=== PATIENT | male | born 1955 | race Caucasian/White ===

== ENCOUNTER 2024-05-30 09:02 | Outpatient (REF) | payer OTHER, SELFPAY ==
--- NOTE | ~2024-05-30 | XR_ITS ---
EXAMINATION: XR SHOULDER 2 OR MORE VIEWS LEFT HISTORY: M25.512 - Pain in left shoulder COMPARISON: There are no prior studies available for comparison. FINDINGS: Two views of the left shoulder are submitted. There is a curvilinear subchondral lucency in the humeral head which could represent a subchondral fracture. There is no dislocation. The glenohumeral joint is maintained. There is mild degenerative change of the AC joint. The humeral head is high riding, consistent with rotator cuff disease. The soft tissues are unremarkable. XR/XR shoulder LT min 2V IMPRESSION: 1. Curvilinear subchondral lucency in the humeral head which could represent a subchondral fracture. Additional views or cross-sectional imaging is suggested. 2. High riding humeral head consistent with rotator cuff disease. Electronically signed by: Phillip Hilario MD 05/31/2024 09:33 AM EDT
--- OUTSIDE RECORDS SUMMARY | 2024-05-31 09:17 | XMS_ITS | Clinical Summary ---
Author Organization [facility] Address [address] [place] [address] Care Team Providers Care Solid Surface Fabricator Name Role Phone Horacio Young MD Primary Care Provider [phone] Allergies No known active allergies Medications Medication [...] age to complete this topic Care Teams Solid Surface Fabricator Relationship Specialty Start Date End Date Horacio Young MD [address] [place] [id number] PCP - General 11/10/16
--- OUTSIDE RECORDS SUMMARY | 2024-05-31 09:17 | XMS_ITS | Clinical Summary ---
Author Organization [facility] [place] [address] Care Team Providers Care Campaign Advisor Name Role Phone Horacio Young MD Primary Care Provider [phone] Surgical History Surgery Date Site/Laterality Comments SHOULDER [...] - 2023-2 5 season) 2023 Influenza Vaccine (Season Ended) 2024 RSV Immunization Adult Patie nts (1 - [...] age to complete this topic Care Teams Campaign Advisor Relationship Specialty Start Date End Date Horacio Young MD [address] [place] [phone] PCP - General Internal Medicine 07/11/17
--- OUTSIDE RECORDS SUMMARY | 2024-05-31 09:17 | XMS_ITS | Clinical Summary ---
Author Organization [facility] Address [address] [place] [address] Care Team Providers Care Visual Education Director Name Role Phone Horacio Young MD Primary Care Provider [phone] Allergies No known active allergies Medications Medication [...] age to complete this topic Care Teams Visual Education Director Relationship Specialty Start Date End Date Horacio Young MD [address] [place], [place] [phone] PCP - General Internal Medicine 07/11/17
== END 2024-05-30 09:03 | disposition home or self-care (01) ==
LOC: HO.HOSX 09:02
PROVIDERS: Visit Provider Orthopaedic Surgery
DX: M25.512 Pain in left shoulder (principal)
CPT/HCPCS: 73030

== ENCOUNTER 2024-05-30 13:45 | Outpatient (AMB) | payer OTHER, SELFPAY ==
--- NOTE | 2024-05-30 13:55 | A.OFFVIS_ITS ---
Vital Signs 05/30/24 14:02 Height 5 ft 6 in Weight 146 lb BMI 23.6 Handedness Right Intake Visit Reasons: Left shoulder pain and weakness Intake Note: Bravo is a 69 year old right hand dominant male who presents with complaints of recurrent left shoulder pain and weakness. The patient did undergo left shoulder rotator cuff repair surgery approximately 15 years ago. He got fairly good relief from that surgery initially. The patient states that his symptoms have gotten worse over the last year. He has had difficulty swimming because of his pain and weakness. He has had injections in the past. The most recent injection gave him no relief. He has also tried Tylenol and anti-inflammatory medicines which gave him minimal relief. He has failed the last 6 weeks of conservative treatment. He has tried physical therapy exercises which aggravated his pain. He reports weakness when lifting his left hand above shoulder height. 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 Physical Exam Vital Signs: BMI result Body Mass Index 23.6 Const Other: Well-nourished well-developed very friendly male awake alert and oriented x3 in no acute distress Extrem Other: Bilateral upper extremity examination shows good capillary refill, no skin lesions noted, normal sensation light touch Left shoulder examination shows decreased range of motion when compared to his right shoulder, 3/5 strength with supraspinatus testing, no instability Results Reviewed Results Reviewed: X-rays of the patient's left shoulder show mild to moderate glenohumeral joint degenerative changes, a type 2 acromion, no acute bony abnormalities Assessment & Plan Assessment & Plan (1) Rotator cuff insufficiency of left shoulder: Code(s): M25.312 - Other instability, left shoulder Category: Medical Plan Mr. Camara presents with recurrent left shoulder pain and weakness most likely due to a recurrent rotator cuff tear. Thus, I will send the patient for an MRI of his left shoulder for further evaluation. I will see him back once the MRI is completed to discuss the findings and treatment options. Feel free to call me at any time should questions regarding his orthopedic management arise. I spent 20 minutes in reviewing the patient's records and imaging studies, seeing the patient and documenting in the medical record. Orders: Orders XR shoulder LT min 2V Today M25.512 - Pain in left shoulder MR shoulder LT wo con Today M25.312 - Other instability, left shoulder Coding Level of Care Code Est Pt Level 3 (75658) Complex EM visit Add On G2211 Diagnoses Rotator cuff insufficiency of left shoulder M25.312
[2024-05-30 14:02] VITALS: BMI 23.6
--- OUTSIDE RECORDS SUMMARY | 2024-05-30 16:28 | XMS_ITS | Clinical Summary ---
Author Organization [facility] Address [address] [place] [address] Care Team Providers Care Virtual Reality Specialist Name Role Phone Horacio Young MD Primary Care Provider Allergies No known active allergies Medications Medication Sig Dispensed Refills Start Date End Date Status aspirin EC 81 MG tablet Take 81 mg by mouth. 0 Acti ve atorvastatin (LIPITOR) tablet 80 mg TK 1 T PO QD 0 11/16/2016 Active clonazePAM (KLONOPIN) 0.5 MG tablet TK 1 T PO Q NIGHT UTD 0 11/11/2016 Act tamiko fluticasone (FLONASE) 50 MCG/ACT nasal spray spray or apply 1 spray inside Nose. 0 05/26/2017 Active metoprolol succinate (TOPROL-XL) 24 hr tablet 50 mg TK 1 T PO QD 0 10/03/2016 Active albuterol (VENTOLIN HFA) 108 (90 Base) MCG/ACT inhaler 0 10/21/2016 Active sertraline (ZOLOFT) 50 MG tablet TK 1 T PO ONCE D WF 0 11/18/2016 Act tamiko montelukast (SINGULAIR) 10 MG tablet TK 1 T PO D AT LEAST 2 HOURS PRIOR TO RUNNING PRN. BENEFIT LASTS FOR 24 HOURS 0 01/21/2018 Active FLUARIX QUADRIVALENT 0.5 ML injection inject 0.5 milliliter intramuscularly 0 11/29/2017 Active Active Problems Problem Noted Date Diagnosed Date Arthritis of knee, right 07/31/2019 Arthritis of knee, left 05/05/2018 Family History Medical History Relation Name Comments Cancer Father Relation Name Status Comments Father Social History Tobacco Use Types Packs/Day Years Used Date Smoking Tobacco: Never Smokeless Tobacco: Never Alcohol Use Standard Drinks/Week Comments No 0 (1 standard drink = 0.6 oz pur e alcohol) Sex and Gender Information Value Date Recorded Sex Assigned at Not on file Gender Identity Not on file Sexual Orientation Not on file Last Filed Vital Signs Vital Sign Reading Time Taken Comments Blood Pressure - - Pulse - - Temperature - - Respiratory Rate - - Oxygen Saturation - - Inhaled Oxygen Concentration - - Weight 64.9 kg (143 lb) 06/14/2018 3:30 PM EDT Height 170.2 cm (5' 7 ) 06/14/2018 3:30 PM EDT Body Mass Index 22.4 06/14/2018 3:30 PM EDT Plan of Treatment Health Maintenance Due Date Last Done Comments Hepatitis C Screening 1955 COVID-19 Vaccine (#1) 1955 Depression Screening 1967 Preventative Health Evaluation 1973 DTap / Tdap / Td (1 - Tdap) 1974 Colon Cancer Screening (Colonoscopy) 2000 Shingrix-Zoster Vaccine (1 of 2) 2005 Fall Risk Assessment 2020 Pneumococcal Vaccine (1 of 1 - PCV) 2020 Influenza Vaccine (#1) 2023 RSV Adult > 60+ Yrs or Pregn ant (1 - 1-dose 75+ series) 2030 Hepatitis B Vaccines Aged Out No long er eligible based on patient's age to complete this topic RSV Ped < 20 months Aged Out No longe r eligible based on patient's age to complete this topic Care Teams Virtual Reality Specialist Relationship Specialty Start Date End Date Horacio Young MD [address] [place], [place] [phone] PCP - General Internal Medicine 07/11/17
--- OUTSIDE RECORDS SUMMARY | 2024-05-30 16:28 | XMS_ITS | Clinical Summary ---
Author Organization [facility] [place] [address] Care Team Providers Care Principal Law Clerk Name Role Phone Horacio Young MD Primary Care Provider [phone] Surgical History Surgery Date Site/Laterality Comments SHOULDER SURGERY PROCEDURE:SHOULDER SURGERY RETINAL DETACHMENT SURGERY 2010 PROCEDURE:RETINAL DETACHMENT SURGERY GLAUCOMA SURGERY 2010 PROCEDURE:GLAUCOMA SURGERY Medical History Medical History Date Comments Asthma DX:Asthma Family History Medical History Relation Name Comments Cancer Father Relation Name Status Comments Father Social History Tobacco Use Types Packs/Day Years Used Date Smoking Tobacco: Never Smokeless Tobacco: Never Alcohol Use Standard Drinks/Week Comments No 0 (1 standard drink = 0.6 oz pur e alcohol) Sex and Gender Information Value Date Recorded Sex Assigned at Not on file Legal Sex Male 6:28 AM EST Gender Identity Not on file Sexual Orientation Not on file Obstetrics History Last Filed Vital Signs Vital Sign Reading Time Taken Comments Blood Pressure 88/60 11/08/2023 7:31 AM EDT Pulse - - Temperature - - Respiratory Rate - - Oxygen Saturation - - Inhaled Oxygen Concentration - - Weight 64 kg (141 lb) 11/08/2023 7:31 AM EDT Height 167.6 cm (5' 6 ) 11/08/2023 7:31 AM EDT Body Mass Index 22.76 11/08/2023 7:31 AM EDT Plan of Treatment Health Maintenance Due Date Last Done Comments DTaP,Tdap,and Td Vaccines (1 - Tdap) 1974 Pneumococcal Vaccine: 50+ Ye ars (1 of 1 - PCV) 2005 Zoster Vaccines (1 of 2) 2005 Abdominal Aortic Aneurysm (A AA) Screen 01/31/2022 Cholesterol Screening (Lipid Panel) 01/31/2022 Colorectal Cancer Screening: Colonoscopy 01/31/2022 Depression Screening 01/31/2022 Falls Risk Assessment 01/31/2022 Hepatitis C Screening 01/31/2022 Social Influencers of Health Screening 01/31/2022 COVID-19 Vaccine (1 - 2023-2 5 season) 2023 Influenza Vaccine (#1) 2023 RSV Immunization Adult Patie nts (1 - 1-dose 75+ series) 2030 HIB Vaccines Aged Out No longer eligi ble based on patient's age to complete this topic HPV Vaccines Aged Out No longer eligi ble based on patient's age to complete this topic Hepatitis A Vaccines Aged Out No long er eligible based on patient's age to complete this topic Hepatitis B Vaccines Aged Out No long er eligible based on patient's age to complete this topic IPV Vaccines Aged Out No longer eligi ble based on patient's age to complete this topic MMR Vaccines Aged Out No longer eligi ble based on patient's age to complete this topic Meningococcal ACWY Vaccine Aged Out N o longer eligible based on patient's age to complete this topic Meningococcal B Vacine Aged Out No lo nger eligible based on patient's age to complete this topic RSV Immunization Patients Un lluvia 20 months Aged Out No longer eligible b ased on patient's age to complete this topic Varicella Vaccines Aged Out No longer eligible based on patient's age to complete this topic Care Teams Principal Law Clerk Relationship Specialty Start Date End Date Horacio Young MD [address] [place] [phone] PCP - General Internal Medicine 07/11/17
--- OUTSIDE RECORDS SUMMARY | 2024-05-30 16:28 | XMS_ITS ---
Author Name [facility] Organization Unknown Encounters Encounter Type Encounter Reason Primary Diagnosis Location Date Ambulatory [facility] 05/03/2024
--- OUTSIDE RECORDS SUMMARY | 2024-05-30 16:28 | XMS_ITS | Clinical Summary ---
Author Organization [facility] Address [address] [place] [address] Care Team Providers Care Emergency Veterinarian Name Role Phone Horacio Young MD Primary Care Provider [phone] Allergies No known active allergies Medications Medication Sig Dispensed Refills Start Date End Date Status VENTOLIN HFA 108 (90 Base) MCG/ACT inhaler 10/21/2016 Act tamiko atorvastatin (LIPITOR) 80 MG tablet TK 1 T PO QD 3 11/16/2016 Active clonazePAM (KlonoPIN) 0.5 MG tablet TK 1 T PO Q NIGHT UTD 2 11/11/2016 Active metoPROLOL SUCCINATE (TOPROL-XL) 50 MG 24 hr tablet TK 1 T PO QD 3 10/03/2016 Active sertraline (ZOLOFT) 50 MG tablet TK 1 T PO ONCE D WF 1 11/18/2016 Active aspirin enteric coated (ECOTRIN LOW STRENGTH) 81 MG EC tablet Take 81 mg by mouth daily. Active fluticasone (FloNASE) 50 mcg/spray nasal sprayIndications:Viral upper respiratory tract infection 1 spray into each nostril daily. 1 Bottle 05/26/2017 Active Active Problems Problem Noted Date Diagnosed Date Pain of right tibia 11/25/2016 Medial tibial stress syndrome 11/25/2016 Social History Tobacco Use Types Packs/Day Years Used Date Smoking Tobacco: Never Smokeless Tobacco: Never Tobacco Cessation:Counseling Given: Yes Alcohol Use Standard Drinks/Week Comments Yes 0 (1 standard drink = 0.6 oz pur e alcohol) Sex and Gender Information Value Date Recorded Sex Assigned at Not on file Gender Identity Not on file Sexual Orientation Not on file Last Filed Vital Signs Vital Sign Reading Time Taken Comments Blood Pressure 166/83 05/26/2017 11:26 AM EDT Pulse 52 05/26/2017 11:26 AM EDT Temperature 36.9 ??C (98.4 ??F) 05/26/2017 11:26 AM E DT Respiratory Rate - - Oxygen Saturation 97% 05/26/2017 11:26 AM EDT Inhaled Oxygen Concentration - - Weight 63.5 kg (140 lb) 05/26/2017 11:26 AM EDT Height 170.2 cm (5' 7 ) 05/26/2017 11:26 AM EDT Body Mass Index 21.93 05/26/2017 11:26 AM EDT Plan of Treatment Health Maintenance Due Date Last Done Comments Hepatitis C Virus Screening 1955 DTaP/Tdap/Td Vaccines (1 - Tdap) 1974 Colonoscopy 2000 Pneumococcal Vaccines 50+ (1 of 1 - PCV) 2005 Zoster (Shingles) Vaccine (1 of 2) 2005 Influenza Vaccine 09/29/2023 COVID-19 Vaccine ( - 2023-2 5 season) 2023 RSV Vaccine 60 years and old er and Patients (1 - 1-dose 75+ series) 2030 Hepatitis B Vaccines Aged Out No long er eligible based on patient's age to complete this topic Care Teams Emergency Veterinarian Relationship Specialty Start Date End Date Horacio Young MD [address] [place] [id number] PCP - General 11/10/16
== END 2024-05-30 14:19 | disposition home or self-care (01) ==
PROVIDERS: PCP Internal Medicine; Visit Provider Orthopaedic Surgery
DX: M25.312 Other instability, left shoulder (principal)
CPT/HCPCS: 99213

== ENCOUNTER → 2024-05-30 13:55 | Outpatient (BNV) | payer OTHER, SELFPAY | PROVIDERS: Visit Provider Radiology Diagnostic Radiology | DX: M89.8X2 Other specified disorders of bone, upper arm (principal) | CPT/HCPCS: 73030 ==

== ENCOUNTER 2024-11-06 07:33 | Outpatient (AMB) | payer OTHER, SELFPAY ==
--- OUTSIDE RECORDS SUMMARY | 2024-03-27 12:00 | XMS_ITS ---
Author Organization [facility], [place] Address [address] [facility] [address] [place] [address] Care Team Providers Care Form Setter Supervisor Name Role Phone Migration, Provider Unavailable Unavailable REASON FOR VISIT Follow-up Appt Encounters Encounter Location Date Provider Diagnosis [facility], [address] [place] [phone] 03/27/2024 Provider Migration Plan Of Treatment Next Appt Details Provider Name:Abril Mustafa, 11/08/2024 03:00:00 PM, [address] [place] [address], [address], [place], [address], [phone] Progress Notes * AKOSUA MULLENDOB:[birth year] (69 yo M)Acc No.[id number]:03/27/2024 Progress Notes Patient: AKOSUA HANSON Provider: Nithya Overton :1955 A ge:69 Y S ex:Male Date:03/27/2024 Phone: Address:[address] [phone] Subjective: * Chief Complaints: * F ollow-up Appt * Ocular Surgical History: Objective: Vision Examination: * Electronic signature of Prov ider Migration on 11/06/2024 at 07:35 AM EDT Sign off status: Pending * Provider: Nithya salcido Migration Date: 03/27/2024 Generated for Abdelrahman kong/Papa/eTsukumarsmitting on: 0 11/06/2024 07:35 AM EDT
--- OUTSIDE RECORDS SUMMARY | 2024-06-21 11:30 | XMS_ITS ---
Author Organization [facility] [place] Address [address] [facility] [address] [place] [address] Care Team Providers Care Milk Truck Driver Name Role Phone Cesar Tafoya Unavailable [phone] REASON FOR VISIT Follow-up Appt Encounters Encounter Location Date Provider Diagnosis [facility], [address] [place] [address] 06/21/2024 Cesar Tafoya Plan Of Treatment Next Appt Details Provider Name:Abril Mustafa, 11/08/2024 03:00:00 PM, [address] [place] [address], [address], [place], [address], [id number] Progress Notes * AKOSUA MULLENDOB:[birth year] (69 yo M)Acc No.[id number]:06/21/2024 Progress Notes Patient: AKOSUA HANSON Provider: Zandra FOWLER :1955 A ge:69 Y S ex:Male Date:06/21/2024 Phone: Address:[address], [facility] [phone] Subjective: * Chief Complaints: * F ollow-up Appt * Ocular Surgical History: Objective: Vision Examination: * Electronic signature of Flakito Tafoya PA-C on 11/06/2024 at 07:35 AM EDT Sign off status: Pending * Provider: Zandra FOWLER Date: 0 06/21/2024 Generated for Printi ng/Faxing/eTransmitting on: 0 11/06/2024 07:35 AM EDT
--- OUTSIDE RECORDS SUMMARY | 2024-08-28 12:00 | XMS_ITS ---
Author Organization [facility] [place] Address [address] [facility] [address] [place] [address] Care Team Providers Care Licensed Electrician Name Role Phone Cesar Tafoya Unavailable [phone] Allergies No Known Allergies REASON FOR VISIT [...] Encounter Location Date Provider Diagnosis [facility], [place] [address] [facility] [address] [place] [address] 08/28/2024 Cesar Tafoya Assessments Encounter Date Diagnosis [...] Up: 4 Months, Reason: BP Provider Name:Abril Saggerry, 11/08/2024 03:00:00 PM, [address] [place] [address], [address], [place], [address], [id number] Progress Notes * AKOSUA MULLENDOB:[birth year] (69 yo M)Acc No.[id number]:08/28/2024 Progress Notes Patient: AKOSUA HANSON Provider: Zandra FOWLER :1955 A ge:69 Y S ex:Male Date:08/28/2024 Phone: Address:[address] [place], [place] [address]lu Perez, [place], [place] Subjective: * Chief Complaints: * F [...] of Flakito Tafoya PA-C on 11/06/2024 at 07:36 AM EDT Sign off status: Pending * Provider: Zandra FOWLER Date: 0 08/28/2024 Generated for Abdelrahman kong/Papa/Logan on: 11/06/2024 07:36 AM EDT
--- OUTSIDE RECORDS SUMMARY | 2024-09-07 06:45 | XMS_ITS ---
Author Organization [facility] [place] Address [address] [facility] [address] [place] [address] Care Team Providers Care Guitar Teacher Name Role Phone Abril Mustafa Unavailable [phone] Allergies No Known Allergies REASON FOR VISIT [...] Insomnia disorder related to another mental disorder ([id number]) Insomnia 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) [...] Location Date Provider Diagnosis [facility], [address] [place] [address] 09/07/2024 Abril Mustafa Insomnia due to other [...] days Next Appt Details Provider Name:Abril Mustafa, 11/08/2024 03:00:00 PM, [address] [place] [address], Suite [facility], [place], [address], [phone] Progress Notes * AKOSUA MULLENDOB:[birth year] (69 yo M)Acc No.[id number]:09/07/2024 Progress Notes Patient: AKOSUA HANSON Provider: Inna gibbs Ramsey :1955 A ge:69 Y S ex:Male Date:09/07/2024 Phone: Address:[facility] Fausto Perez, [place], [place] Subjective: * Chief Complaints: * 1 [...] * Electronic signature of Melissa Mustafa on 11/06/2024 at 07:35 AM EDT Sign off status: Pending * Provider: Inna Mustafa Date: 09/07/2024 Generated for Abdelrahman kong/Papa/Logan on: 11/06/2024 07:35 AM EDT
--- OUTSIDE RECORDS SUMMARY | 2024-10-08 10:30 | XMS_ITS ---
Author Organization [facility] [place] Address [address] [place] [address] [address] [place] [address] Care Team Providers Care Supervisor Prep Name Role Phone Abril Mustafa Unavailable [phone] REASON FOR VISIT 1 MOUTH Medications Medication [...] Unknown Encounters Encounter Location Date Provider Diagnosis [facility] [address] [facility] [address] [place] [address] 10/08/2024 Abril Mustafa Plan Of Treatment Next Appt Details Provider Name:bAril Mustafa, 11/08/2024 03:00:00 PM, [address] [facility], Suite [facility], [place], [address], [phone] Progress Notes * AKOSUA MULLENDOB:[birth year] (69 yo M)Acc No.[id number]:10/08/2024 Progress Notes Patient: AKOSUA HANSON Provider: Inna Mustafa :1955 A ge:69 Y S ex:Male Date:10/08/2024 Phone: Address:[address] [place], [place] [address]lu Perez, [address] [facility], [phone] Subjective: * Chief Complaints: * 1 MOUTH [...] status: Pending * Provider: Inna Mustafa Date: 10/08/2024 Generated for Abdelrahman kong/Papa/Logan on: 11/06/2024 07:35 AM EDT
--- OUTSIDE RECORDS SUMMARY | 2024-11-06 07:35 | XMS_ITS | Clinical Summary ---
Author Organization [facility] Address [address] [place] [address] Care Team Providers Care Tyre Builder Name Role Phone Horacio Young MD Primary Care Provider [phone] Allergies No known active allergies Medications VENTOLIN HFA 108 (90 Base) MCG/ACT inhaler [...] daily. Active fluticasone (FloNASE) 50 mcg/spray nasal sprayIndications :Viral upper respiratory tract infection 1 spray into [...] at Not on file Legal Sex Male 3:03 PM EDT Gender Identity Not on file Sexual Orientation Not on file Last Filed Vital Signs Vital Sign Reading Time Taken Comments Blood Pressure 166/83 05/26/2017 11:26 AM EDT Pulse 52 05/26/2017 11:26 AM EDT Temperature 36.9 C (98.4 F) 05/26/2017 11:26 AM EDT Respiratory Rate - - Oxygen Saturation 97% 05/26/2017 11:26 AM EDT Inhaled Oxygen Concentration - - Weight 63.5 kg (140 lb) 05/26/2017 11:26 AM EDT Height 170.2 cm (5' 7 ) 05/26/2017 11:26 AM EDT Body Mass Index 21.93 05/26/2017 11:26 AM EDT Plan of Treatment Health Maintenance Due Date Last Done Comments Advance Care Planning 1955 Hepatitis C Virus Screening 1955 DTaP/Tdap/Td Vaccines (1 - Tdap) 1974 Colonoscopy 2000 Pneumococcal Vaccines 50+ (1 of 1 - PCV) 2005 Zoster (Shingles) Vaccine (1 of 2) 2005 Influenza Vaccine 09/28/2024 COVID-19 Vaccine ( - 2023-2 5 season) 2024 RSV Vaccine 60 years and old er and Patients (1 - 1-dose 75+ series) 2030 Hepatitis B Vaccines Aged Out No long er eligible based on patient's age to complete this topic Insurance [facility] [facility] Care Teams Tyre Builder Relationship Specialty Start Date End Date Horacio Young MD [address] [place] [address] PCP - General 11/10/16
--- OUTSIDE RECORDS SUMMARY | 2024-11-06 07:35 | XMS_ITS ---
Author Name [facility] Organization Unknown Encounters Encounter Type Encounter Reason Primary Diagnosis Location Date Ambulatory [facility] [place] 05/03/2024
--- OUTSIDE RECORDS SUMMARY | 2024-11-06 07:35 | XMS_ITS | Clinical Summary ---
Author Organization [facility] Address [address] [place] [address] Care Team Providers Care Music Librarian Name Role Phone Horacio Young MD Primary Care Provider [phone] Allergies No known active allergies Medications Medication [...] 1 - PCV) 2020 Influenza Vaccine (#1) 2024 RSV Adult > 60+ Yrs or Pregn ant (1 - 1-dose 75+ series) 2030 Hepatitis B Vaccines Aged Out No long er eligible based on patient's age to complete this topic RSV Ped < 20 months Aged Out No longe r eligible based on patient's age to complete this topic Care Teams Music Librarian Relationship Specialty Start Date End Date Horacio Young MD [address] [place], [place] [phone] PCP - General Internal Medicine 07/11/17
--- OUTSIDE RECORDS SUMMARY | 2024-11-06 07:36 | XMS_ITS | Patient Health Record ---
Author Organization [facility], [place] Address [address] [place] [address] Care Team Providers Care Dosimetrist Name Role Phone Cesar Tafoya Unavailable [phone] Migration, Provider Unavailable Unavailable Abril Mustafa Unavailable [phone] Brandy Herron Unavailable [phone] Allergies No Known Allergies Reason For Referral No Information Medications Medication SIG (Take, Route, Frequency, Duration) [...] 1 tablet Orally Once a day Unknown Montelukast Sodium 10 MG Tablet 1 tablet Orally Once a day; Duration: 90 days 10/26/2024 Active amLODIPine Besylate 5 MG Tablet 1 tablet Orally Once a day Unknown Social History Section Notes: DENIES SMOKING ALCOHOL APPROX 5 TIMES A WEEK/1 DRINK DAILY CAFFEINE-1 CUP COFFEE DAILY DENIES SMOKING ALCOHOL APPROX 5 TIMES A WEEK/1 DRINK DAILY CAFFEINE-1 CUP COFFEE DAILY Problems Problem Type SNOMED Code ICD Code Onset Dates Problem Status W/U Status Risk Notes Problem Insomnia disorder related to another mental disorder (67071705) 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 Vital Signs Heart Rate 60 /min 09/07/2024 5.6 ht Temperature 96.3 degrees Fahrenheit 09/07/2024 5.6 ht Respiratory Rate 20 /min 09/07/2024 5.6 ht Oximetry 99 % 09/07/2024 5.6 ht Blood pressure diastolic 81 mm Hg 09/07/2024 5.6 ht Weight-kg 68.49 kg 09/07/2024 5.6 ht Blood pressure systolic 144 mm Hg 09/07/2024 5.6 ht Weight 151 lbs 09/07/2024 5.6 ht Encounters Encounter Location Date Provider Diagnosis [facility], [address] [address] 03/27/2024 Cesar Tafoya [facility], [address] [address] 03/27/2024 Provider Migration [facility], [address] [address] 06/21/2024 Cesar Tafoya [facility], [address] [address] 08/28/2024 Cesar Tafoya [facility], [address] [address] 09/07/2024 Abril Mustafa Insomnia due to other mental disorder F51.05 [facility], [address] [address] 10/19/2024 Brandy Herron [facility], [address] [address] 10/26/2024 Abril Mustafa Asthma, unspecified asthma severity, unspecified whether complicated, unspecified whether persistent J45.909 [facility], [address] [address] 10/05/2024 Abril Mustafa Assessments Encounter Date Diagnosis (ICD Code) Assessment Notes Treatment Notes Treatment Clinical Notes Section Notes 09/07/2024 Insomnia due to other mental disorder (ICD-10 - F51.05) 10/26/2024 Asthma, unspecified asthma severity, unspecified whether complicated, unspecified whether persistent (ICD-10 - J45.909) 08/28/2024 FRANKIE SEES A PROVIDER FOR THE [...] LOSARTAN 25MG IN AFTERNOON Plan Of Treatment Next Appt Details Provider Name:Abril Mustafa, 11/08/2024 03:00:00 PM, [address] [place] [address], [address], [place], [address], [phone] Insurance Providers Payer Name Payer Address Payer Phone Subscriber Number Group Number Insured Name Patient Relationship to Insured Coverage Start Date Coverage End Date [facility] [address] [address] [place] [address] [id number] AKOSUA MULLEN Self - patient is the insured Medical (General) History Medical History History ICD Code NO OTHER PROVIDERS Surgical History Surgery Date(Month/Year) ANGOPLASTY VICTRECTOMY GLAUCOMA HEART ATTACK 6 STENT Hospitalization History Reason Date(Month/Year) FOR DEHYDRATION 10/21
--- OUTSIDE RECORDS SUMMARY | 2024-11-06 07:36 | XMS_ITS | Clinical Summary ---
Author Organization LL [address] [place] [address] [place] [phone] Phone Care Team Providers Care Edger Machine Helper Name Role Phone Horacio Young MD Primary Care Provider [phone] Surgical History Surgery Date Site/Laterality Comments SHOULDER [...] DTaP,Tdap,and Td Vaccines (1 - Tdap) 1974 IPV Vaccines (2 of 3 - Adult catch-up series) 11/08/2005 10/11/2005 Hepatitis A Vaccines (2 of 2 - Risk 2-dose series) 04/13/2006 10/11/2005 Pneumococcal Vaccine: 50+ Years (2 of 2 - PCV) 01/05/2007 01/05/2006 Zoster Vaccines (2 of 3) 10/23/2016 08/28/2016 Abdominal Aortic Aneurysm (AAA) Screen 01/31/2022 Colorectal Cancer Screening: Colonoscopy 01/31/2022 Falls Risk Assessment 01/31/2022 Hepatitis C Screening 01/31/2022 Social Influencers of Health Screening 01/31/2022 Depression Screening 02/29/2024 COVID-19 Vaccine ( season) 2024 01/22/2024, 11/18/2022, 02/23/2022, Additional history exists Influenza Vaccine (#1) 2024 , 04/01/2019, 01/05/2006 Hypertension/CHF/CAD Annual BMP Blood Test 09/07/2025 09/07/2024 Cholesterol Screening (Lipid Panel) 09/07/2029 09/07/2024 RSV Immunization Adult Patients (1 - 1-dose 75+ series) 2030 HIB [...] age to complete this topic Meningococcal B Vaccine Aged Out No l onger eligible based on patient's age to complete this topic RSV Immunization Patients Under 20 months Aged Out No longer eligible based on patient's age to complete this topic Varicella Vaccines Aged Out No longer eligible based on patient's age to complete this topic Procedures Procedure Name Priority Date/Time Associated Diagnosis Comments MICROALBUMIN CREATININE URINE RATIO Routine 09/07/2024 11:45 AM EDT Hypertension Alcohol abuse Benign enlargement of prostate CBC WITH AUTO DIFFERENTIAL Routine 09/07/2024 11:38 AM EDT Hypertension Alcohol abuse Benign enlargement of prostate AMYLASE Routine 09/07/2024 11:38 AM EDT Hypertension Alcohol abuse Benign enlargement of prostate FOLATE Routine 09/07/2024 11:38 AM EDT Hypertension Alcohol abuse Benign enlargement of prostate LIPASE Routine 09/07/2024 11:38 AM EDT Hypertension Alcohol abuse Benign enlargement of prostate MAGNESIUM Routine 09/07/2024 11:38 AM EDT Hypertension Alcohol abuse Benign enlargement of prostate COMPREHENSIVE METABOLIC PANEL Routine 09/07/2024 11:38 AM EDT Hypertension Alcohol abuse Benign enlargement of prostate LIPID PANEL WITH REFLEX TO DIRECT LDL Routine 09/07/2024 11:38 AM EDT Hypertension Alcohol abuse Benign enlargement of prostate VITAMIN B12 Routine 09/07/2024 11:38 AM EDT Hypertension Alcohol abuse Benign enlargement of prostate B-TYPE NATRIURETIC PEPTIDE Routine 09/07/2024 11:38 AM EDT Hypertension Alcohol abuse Benign enlargement of prostate CBC AND DIFFERENTIAL Routine 09/07/2024 11:38 AM EDT Hypertension Alcohol abuse Benign enlargement of prostate THYROXINE FREE Routine 09/07/2024 11:38 AM EDT Hypertension Alcohol abuse Benign enlargement of prostate HEMOGLOBIN A1C Routine 09/07/2024 11:38 AM EDT Hypertension Alcohol abuse Benign enlargement of prostate PROSTATE SPECIFIC ANTIGEN SCREEN Routine 09/07/2024 11:38 AM EDT Hypertension Alcohol abuse Benign enlargement of prostate THYROID STIMULATING HORMONE Routine 09/07/2024 11:38 AM EDT Hypertension Alcohol abuse Benign enlargement of prostate VITAMIN D 25 HYDROXY Routine 09/07/2024 11:38 AM EDT Hypertension Alcohol abuse Benign enlargement of prostate from Last 3 Months Results * Microalbumin creatinine urine ratio (09/07/2024 11:45 AM EDT) Creatinine, Urine 158.0 mg/dL LAB CHEMISTRY METHOD 09/07/2024 4:02 PM EDT [facility] Microalb, Ur 23.9 0.0 - 29.0 mg/L LAB CHEMISTRY METHOD 09/07/2024 4:02 PM EDT [facility] Microalb/Creat Ratio 15 <30 mg/g creat LAB CHEMISTRY METHOD 09/07/2024 4:02 PM EDT [facility] Urine Urine specimen obtained by clean catch procedure / Unknown Non-blood Collection / Unknown 09/07/2024 11:45 AM EDT 09/07/2024 1:06 PM EDT us Cesar FOWLER LAB URINE ORDERABLES Final Res ult Performing Organization Address [facility]/ZIP Co de Phone Number [facility] [address] [place] [address], * Prostate specific antigen screen (09/07/2024 11:38 AM EDT) PSA 0.96 0.00 - 4.00 ng/mL LAB CHEMISTRY METHOD 09/07/2024 4:06 PM EDT [facility] Blood Venous blood specimen / Unknown Venipuncture / Unknown 09/07/2024 11:38 AM EDT 09/07/2024 1:06 PM EDT Narrative [facility] - 09/07/2024 4:06 PM EDT The Siemens Advia Centaur Chemiluminescent Immunoassay is used. Results obtained with different assay methods or kits cannot be used interchangeably. Results cannot be interpreted as absolute evidence of the presence or absence of malignant disease. us Cesar FOWLER LAB BLOOD ORDERABLES Final Res ult Performing Organization Address City/[facility]/ZIP Co de Phone Number [facility] [address] [place] [address], [place] [phone] * Lipid panel with reflex to direct LDL (09/07/2024 11:38 AM EDT) Cholesterol 122 0 - 200 mg/dL LAB CHEMISTRY METHOD 09/07/2024 2:44 PM EDT [facility] Triglycerides 68 0 - 150 mg/dL LAB CHEMISTRY METHOD 09/07/2024 2:44 PM EDT [facility] HDL 71 >=40 mg/dL LAB CHEMISTRY METHOD 09/07/2024 2:44 PM EDT [facility] LDL Calculated 37 0 - 100 mg/dL LAB CHEMISTRY METHOD 09/07/2024 2:44 PM EDT [facility] VLDL Cholesterol Neo 13.6 mg/dL LAB CHEMISTRY METHOD 09/07/2024 2:44 PM EDT [facility] Non HDL Chol. (LDL+VLDL) 51 <145 mg/dL LAB CHEMISTRY METHOD 09/07/2024 2:44 PM EDT [facility] Chol/HDL Ratio 1.7 0.0 - 4.4 LAB CHEMISTRY METHOD 09/07/2024 2:44 PM EDT [facility] Blood Venous blood specimen / Unknown Venipuncture / Unknown 09/07/2024 11:38 AM EDT 09/07/2024 1:06 PM EDT Cesar FOWLER LAB BLOOD ORDERABLES Final Res ult [facility] [address] [place] [address], [place] [phone] * (ABNORMAL) CBC auto differential (09/07/2024 11:38 AM EDT) WBC 4.5(L) 4.8 - 10.8 K/mcL LAB HEMETOLOGY METHOD 09/07/2024 1:17 PM EDT [facility] RBC 3.60(L) 4.50 - 5.50 M/mcL LAB HEMETOLOGY METHOD 09/07/2024 1:17 PM EDT [facility] Hemoglobin 12.2(L) 13.5 - 17.5 g/dL LAB HEMETOLOGY [facility]07[facility]24 [facility] Hematocrit 35.2(L) 42.0 - 54.0 % LAB HEMETOLOGY METHOD 09/07/2024 [facility] MCV 97.2 79.0 - 98.0 FL LAB HEMETOLOGY METHOD 09/07/2024 1:17 PM [facility] MCH 33.7(H) 27.0 - 32.0 pcg LAB HEMETOLOGY METHOD 09/07/2024 1:17 PM [facility] MCHC 34.7 32.0 - 37.0 g/dL LAB HEMETOLOGY METHOD 09/07/2024 1:17 PM [facility] RDW 12.3 11.0 - 15.0 % LAB HEMETOLOGY METHOD 09/07/2024 1:17 PM [facility] Platelets 181 130 - 400 K/mcL LAB HEMETOLOGY METHOD 09/07/2024 1:17 PM [facility] MPV 11.5(H) 7.0 - 11.0 FL LAB HEMETOLOGY METHOD 09/07/2024 1:[facility] NRBC 0.0 <1.0 % LAB HEMETOLOGY METHOD 09/07/2024 1:[facility] NRBC Absolute 0.00 <0.10 K/mcL LAB HEMETOLOGY METHOD 09/07/2024 1:[facility] Neutrophils Relative 60.9 % LAB HEMETOLOGY METHOD 09/07/2024 1:[facility] Lymphocytes Relative 26.7 % LAB HEMETOLOGY METHOD 09/07/2024 1:17 PM EDT [facility] Monocytes Relative 9.7 % LAB HEMETOLOGY METHOD 09/07/2024 1:17 PM [facility] Eosinophils Relative 1.6 % LAB HEMETOLOGY METHOD 09/07/2024 1:17 PM [facility] Basophils Relative 0.9 % LAB HEMETOLOGY METHOD 09/07/2024 1:17 PM [facility] Immature Granulocytes Relative 0.2 % LAB HEMETOLOGY METHOD 09/07/2024 1:17 PM [facility] Neutrophils Absolute 2.71 1.50 - 7.00 K/mcL LAB HEMETOLOGY METHOD 09/07/2024 1:17 PM [facility] Lymphocytes Absolute 1.19 1.00 - 5.00 K/mcL LAB HEMETOLOGY METHOD 09/07/2024 1:17 PM [facility] Monocytes Absolute 0.43 0.20 - 1.00 K/mcL LAB HEMETOLOGY METHOD 09/07/2024 1:17 PM [facility] Eosinophils Absolute 0.07 0.00 - 0.50 K/mcL LAB HEMETOLOGY METHOD 09/07/2024 1:17 PM [facility] Basophils Absolute 0.04 0.00 - 0.20 K/mcL LAB HEMETOLOGY METHOD 09/07/2024 1:17 PM [facility] Immature Granulocytes Absolute 0.01 0.00 - 0.03 K/mcL LAB HEMETOLOGY METHOD 09/07/2024 1:17 PM [facility] Blood Venous blood specimen / Unknown Venipuncture / Unknown 09/07/2024 11:38 AM EDT 09/07/2024 1:07 PM EDT us Cesar FOWLER LAB BLOOD ORDERABLES Final Res ult Performing Organization Address [facility]/ZIP Co de Phone Number [facility] [address] [place] [address], * Vitamin D 25 hydroxy (09/07/2024 11:38 AM EDT) Vit D, 25-Hydroxy 45.4 30.0 - 80.0 ng/mL LAB CHEMISTRY METHOD 09/07/2024 4:06 PM EDT [facility] Blood Venous blood specimen / Unknown Venipuncture / Unknown 09/07/2024 11:38 AM EDT 09/07/2024 1:06 PM EDT Cesar FOWLER LAB BLOOD ORDERABLES Final Res ult Performing Organization Address [facility] Co de Phone Number [facility] [address] [place] [address], * Thyroid stimulating hormone (09/07/2024 11:38 AM EDT) TSH 1.41 0.40 - 4.00 mcIU/mL LAB CHEMISTRY METHOD 09/07/2024 4:56 PM EDT [facility] Blood Venous blood specimen / Unknown Venipuncture / Unknown 09/07/2024 11:38 AM EDT 09/07/2024 1:06 PM EDT Cesar FOWLER LAB BLOOD ORDERABLES Final Res ult Performing Organization Address [facility]/ZIP Co de Phone Number [facility] [address] [place] [address], * Thyroxine free (09/07/2024 11:38 AM EDT) Free T4 1.04 0.70 - 1.80 ng/dL LAB CHEMISTRY METHOD 09/07/2024 4:06 PM EDT [facility] Blood Venous blood specimen / Unknown Venipuncture / Unknown 09/07/2024 11:38 AM EDT 09/07/2024 1:06 PM EDT Cesar FOWLER LAB BLOOD ORDERABLES Final Res ult Performing Organization Address [facility]/ZIP Co de Phone Number [facility] [address] [place] [address], * B-type natriuretic peptide (09/07/2024 11:38 AM EDT) BNP 59 <=100 pcg/mL LAB CHEMISTRY METHOD 09/07/2024 2:01 PM EDT [facility] Blood Venous blood specimen / Unknown Venipuncture / Unknown 09/07/2024 11:38 AM EDT 09/07/2024 1:07 PM EDT Cesar FOWLER LAB BLOOD ORDERABLES Final Res ult Performing Organization Address [facility]/ZIP Co de Phone Number [facility] [address] [place] [address], * Magnesium (09/07/2024 11:38 AM EDT) Magnesium 1.9 1.9 - 2.6 mg/dL LAB CHEMISTRY METHOD 09/07/2024 2:18 PM EDT [facility] Blood Venous blood specimen / Unknown Venipuncture / Unknown 09/07/2024 11:38 AM EDT 09/07/2024 1:06 PM EDT Cesar FOWLER LAB BLOOD ORDERABLES Final Res ult [facility] [address] [place] [address], [place] [phone] * Lipase (09/07/2024 11:38 AM EDT) Pathologist [facility] Lipase 60 13 - 75 unit/L LAB CHEMISTRY METHOD 09/07/2024 2:44 PM EDT [facility] Blood Venous blood specimen / Unknown Venipuncture / Unknown 09/07/2024 11:38 AM EDT 09/07/2024 1:06 PM EDT us Cesar FOWLER LAB BLOOD ORDERABLES Final Res ult Performing Organization Address City/[facility]/ZIP Co de Phone Number [facility] [address] [place] [address], [place] [phone] * Hemoglobin A1c (09/07/2024 11:38 AM EDT) [facility] Hemoglobin A1C 5.2 <6.5 % LAB CHEMISTRY METHOD 09/07/2024 9:22 PM EDT [facility] Mean Bld Glu Estim. 103 mg/dL LAB CHEMISTRY METHOD 09/07/2024 9:22 PM EDT [facility] Blood Venous blood specimen / Unknown Venipuncture / Unknown 09/07/2024 11:38 AM EDT 09/07/2024 1:07 PM EDT us Ceasr FOWLER LAB BLOOD ORDERABLES Final Res ult Performing Organization Address [facility]/ZIP Co de Phone Number [facility] [address] [place] [address], [place] [phone] * (ABNORMAL) Folate (09/07/2024 11:38 AM EDT) [facility] Folate >20.0(H) 2.8 - 17.0 ng/ml LAB CHEMISTRY METHOD 09/07/2024 2:44 PM EDT [facility] Blood Venous blood specimen / Unknown Venipuncture / Unknown 09/07/2024 11:38 AM EDT 09/07/2024 1:06 PM EDT Cesar FOWLER LAB BLOOD ORDERABLES Final Res ult Performing Organization Address City/[facility]/ZIP Co de Phone Number [facility] [address] [place] [address], [place] [phone] * Vitamin B12 (09/07/2024 11:38 AM EDT) Vitamin B-12 538 250 - 900 pcg/mL LAB CHEMISTRY METHOD 09/07/2024 2:44 PM EDT [facility] Blood Venous blood specimen / Unknown Venipuncture / Unknown 09/07/2024 11:38 AM EDT 09/07/2024 1:06 PM EDT Cesar FOWLER LAB BLOOD ORDERABLES Final Res ult Performing Organization Address [facility] Co de Phone Number [facility] [address] [place] [address], [place] [phone] * Amylase (09/07/2024 11:38 AM EDT) Amylase 76 25 - 115 unit/L LAB CHEMISTRY METHOD 09/07/2024 2:18 PM EDT [facility] Blood Venous blood specimen / Unknown Venipuncture / Unknown 09/07/2024 11:38 AM EDT 09/07/2024 1:06 PM EDT Cesar FOWLER LAB BLOOD ORDERABLES Final Res ult Performing Organization Address City/[facility]/ZIP Co de Phone Number [facility] [address] [place] [address], [place] [phone] * Comprehensive metabolic panel (09/07/2024 11:38 AM EDT) Sodium 140 133 - 145 mmol/L LAB CHEMISTRY METHOD 09/07/2024 2:44 PM EDT [facility] Potassium 4.3 3.5 - 5.5 mmol/L LAB CHEMISTRY METHOD 09/07/2024 2:44 PM [facility] Chloride 107 96 - 110 mmol/L LAB CHEMISTRY METHOD 09/07/2024 2:44 PM [facility] CO2 27 21 - 32 mmol/L LAB CHEMISTRY METHOD 09/07/2024 2:44 PM [facility] Anion Gap 6 3 - 11 LAB CHEMISTRY METHOD 09/07/2024 2:44 PM [facility] Glucose 78 70 - 100 mg/dL LAB CHEMISTRY METHOD 09/07/2024 2:44 PM [facility] BUN 22 5 - 25 mg/dL LAB CHEMISTRY METHOD 09/07/2024 2:44 PM [facility] Creatinine 1.14 0.70 - 1.30 mg/dL LAB CHEMISTRY METHOD 09/07/2024 2:44 PM [facility] eGFR 70 >=60 mL/min/1. 73m2 LAB CHEMISTRY METHOD 09/07/2024 2:44 PM [facility] Comment:Calculation based on the Chronic Kidney Disease Epidemiology Collaboration (CKD-EPI) equation refit without adjustment for race. BUN/Creatinine Ratio 19.3 LAB CHEMISTRY METHOD 09/07/2024 2:44 PM [facility] Calcium 9.0 8.5 - 10.5 mg/dL LAB CHEMISTRY METHOD 09/07/2024 2:44 PM [facility] AST (SGOT) 21 10 - 42 unit/L LAB CHEMISTRY METHOD 09/07/2024 2:44 PM [facility] ALT (SGPT) 29 10 - 60 unit/L LAB CHEMISTRY METHOD 09/07/2024 2:44 PM [facility] Alkaline Phosphatase 66 42 - 121 unit/L LAB CHEMISTRY METHOD 09/07/2024 2:44 PM [facility] Total Protein 6.7 6.0 - 8.0 g/dL LAB CHEMISTRY METHOD 09/07/2024 2:44 PM EDT [facility] Albumin 3.9 3.2 - 5.0 g/dL LAB CHEMISTRY METHOD 09/07/2024 2:44 PM EDT [facility] Total Bilirubin 1.0 0.0 - 1.4 mg/dL LAB CHEMISTRY METHOD 09/07/2024 2:44 PM EDT [facility] Blood Venous blood specimen / Unknown Venipuncture / Unknown 09/07/2024 11:38 AM EDT 09/07/2024 1:06 PM EDT Cesar FOWLER LAB BLOOD ORDERABLES Final Res ult [facility] [address] [place] [address], from Last 3 Months Insurance MEDICARE [facility] [place] [id number] Care Teams Edger Machine Helper Relationship Specialty Start Date End Date Horacio Young MD [address] [place] [phone] PCP - General Internal Medicine 07/11/17
--- NOTE | 2024-11-06 07:44 | A.OFFVIS_ITS ---
Vital Signs 11/06/24 07:50 Height 5 ft 6 in Weight 146 lb BMI 23.6 Intake Visit Reasons: New prob RT knee pain, Left shoulder pain and weakness Intake Note: Bravo is a 69 year old male who presents with complaints of progressively worsening right knee pain as well as left shoulder pain and weakness. The patient did undergo left shoulder surgery several years ago. He got fairly good relief from that procedure initially. He re-injured his left shoulder approximately 1 year ago while lifting a heavy object. His symptoms have gotten worse in spite of continued non operative treatments. He has failed the last 6 weeks of conservative treatment which has included Tylenol, anti-inflammatory medicines, a home exercise program and physical therapy exercises. He describes his knee pain as sharp in nature. He has had cortisone injections which have given him only temporary relief. He has also had viscosupplementation injections which gave him fairly good relief. He wishes to hold off on surgery if at all possible. it for the approval from insurance. 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 Physical Exam Const Other: Well-nourished well-developed very friendly male awake alert and oriented x3 in no acute distress Extrem Other: Left shoulder examination shows decreased range of motion when compared to his right shoulder, 3/5 strength with supraspinatus testing, positive impingement signs, no instability Right knee examination shows a minimal effusion, palpable crepitus with range of motion, pain with range of motion, no instability Office Procedures AMB Joint Injection/Aspiration Joint Injection/Aspiration Primary Site: right knee Prep: site was prepped using aseptic technique Injected: 40 mg of, DepoMedrol and 1% plain lidocaine Procedure: The patient tolerated the procedure well Coding 78903 - Large joint Procedure code (CPT) selection complete Results Reviewed Results Reviewed: X-rays of the patient's right knee show mild diffuse joint space narrowing, no acute bony abnormalities Assessment & Plan Assessment & Plan (1) Rotator cuff insufficiency of left shoulder: Code(s): M25.312 - Other instability, left shoulder Category: Medical (2) Osteoarthritis of right knee: Code(s): M17.11 - Unilateral primary osteoarthritis, right knee Category: Medical Plan Mr. Camara presents with left shoulder pain and weakness most likely due to full-thickness rotator cuff tearing. Thus, I will send the patient for an MRI of his left shoulder for further evaluation. I will contact him by phone once the MRI results are available. He also has right knee pain due to degenerative joint disease. The risks and benefits of a right knee cortisone injection were discussed at length with the patient. The patient wished to proceed. He tolerated the injection well. I will also see if the patient's insurance company will cover a viscosupplementation injection for his right knee osteoarthritis. I will see him back once the injection is available. Feel free to call me at any time should questions regarding his orthopedic management arise. I spent 22 minutes in reviewing the patient's records and imaging studies, seeing the patient and documenting in the medical record. Orders: Orders XR knee RT 3V Today M25.561 - Pain in right knee MR shoulder LT wo con 11/07/24 M25.312 - Other instability, left shoulder AMB Joint Injection/Aspiration Today M17.11 - Unilateral primary osteoarthritis, right knee Coding Level of Care Code Est Pt Level 3 (39086) Complex EM visit Add On G2211 Diagnoses Rotator cuff insufficiency of left shoulder M25.312 Osteoarthritis of right knee M17.11 CPT Codes Coding - 60544 Large joint: 21659 - Large joint ([id number])
[2024-11-06 07:50] VITALS: BMI 23.6
== END 2024-11-06 07:59 | disposition home or self-care (01) ==
LOC: HO.HOS 07:33
PROVIDERS: Visit Provider Orthopaedic Surgery
DX: M25.312 Other instability, left shoulder (principal); M17.11 Unilateral primary osteoarthritis, right knee
CPT/HCPCS: 20610; 99213

== ENCOUNTER → 2024-11-06 07:37 | Outpatient (BNV) | payer OTHER, SELFPAY | PROVIDERS: Visit Provider Radiology Diagnostic Radiology | DX: M25.561 Pain in right knee (principal); I70.201 Unspecified atherosclerosis of native arteries of extremities, right leg | CPT/HCPCS: 73562 ==

== ENCOUNTER 2024-11-06 08:29 | Outpatient (REF) | payer OTHER, SELFPAY ==
--- OUTSIDE RECORDS SUMMARY | 2024-03-27 12:00 | XMS_ITS ---
Author Organization [facility], [place] Address [address] [facility] [address] [place] [address] Care Team Providers Care Bass Fisher Name Role Phone Migration, Provider Unavailable Unavailable REASON FOR VISIT Follow-up Appt Encounters Encounter Location Date Provider Diagnosis [facility], [address] [place] [address] 03/27/2024 Provider Migration Plan Of Treatment Next Appt Details Provider Name:Abril Mustafa, 11/08/2024 03:00:00 PM, [address] [place] [address], [address], [place], [address], [phone] Progress Notes * AKOSUA MULLENDOB:[birth year] (69 yo M)Acc No.[id number]:03/27/2024 Progress Notes Patient: AKOSUA HANSON Provider: Nithya Overton :1955 A ge:69 Y S ex:Male Date:03/27/2024 Phone: Address:[address] [phone] Subjective: * Chief Complaints: * F ollow-up Appt * Ocular Surgical History: Objective: Vision Examination: * Electronic signature of Prov ider Migration on 11/07/2024 at 09:46 AM EDT Sign off status: Pending * Provider: Nithya salcido Migration Date: 0 03/27/2024 Generated for Abdelrahman kong/Papa/eTsukumarsmitting on: 0 11/07/2024 09:46 AM EDT
--- OUTSIDE RECORDS SUMMARY | 2024-06-21 11:30 | XMS_ITS ---
Author Organization [facility] [place] Address [address] [facility] [address] [place] [address] Care Team Providers Care Gas Golf Cart Repairer Name Role Phone Cesar Tafoya Unavailable [phone] REASON FOR VISIT Follow-up Appt Encounters Encounter Location Date Provider Diagnosis [facility], [address] [place] [address] 06/21/2024 Cesar Tafoya Plan Of Treatment Next Appt Details Provider Name:Abril Mustafa, 11/08/2024 03:00:00 PM, [address] [place] [address], [address], [place], [address], [id number] Progress Notes * AKOSUA MULLENDOB:[birth year] (69 yo M)Acc No.[id number]:06/21/2024 Progress Notes Patient: AKOSUA HANSON Provider: Zandra FOWLER :1955 A ge:69 Y S ex:Male Date:06/21/2024 Phone: Address:[address], [facility] [phone] Subjective: * Chief Complaints: * F ollow-up Appt * Ocular Surgical History: Objective: Vision Examination: * Electronic signature of Flakito Tafoya PA-C on 11/07/2024 at 09:46 AM EDT Sign off status: Pending * Provider: Zandra FOWLER Date: 0 06/21/2024 Generated for Printi ng/Faxing/eTransmitting on: 0 11/07/2024 09:46 AM EDT
--- OUTSIDE RECORDS SUMMARY | 2024-08-28 12:00 | XMS_ITS ---
Author Organization [facility] [place] Address [address] [facility] [address] [place] [address] Care Team Providers Care Deckhand Name Role Phone Cesar Tafoya Unavailable [phone] Allergies No Known Allergies REASON FOR VISIT [...] 08/28/2024 Encounters Encounter Location Date Provider Diagnosis [facility] [place] [address] [facility] [address] [place] [address] 08/28/2024 Cesar Tafoya Assessments Encounter Date Diagnosis [...] BP Provider Name:Abril Saggerry, 11/08/2024 03:00:00 PM, [address] [place] [address], [address], [place], [address], [id number] Progress Notes * AKOSUA MULLENDOB:[birth year] (69 yo M)Acc No.[id number]:08/28/2024 Progress Notes Patient: AKOSUA HANSON Provider: Zandra FOWLER :1955 A ge:69 Y S ex:Male Date:08/28/2024 Phone: Address:[address] [place], [place] [address]lu Perez, [place], [place] Subjective: * Chief Complaints: * F [...] 0 08/28/2024 Generated for Abdelrahman kong/Papa/Logan on: 11/07/2024 09:46 AM EDT
--- OUTSIDE RECORDS SUMMARY | 2024-09-07 06:45 | XMS_ITS ---
Author Organization [facility] [place] Address [address] [facility] [address] [place] [address] Care Team Providers Care Dry Mixer Name Role Phone Abril Mustafa Unavailable [phone] Allergies No Known Allergies REASON FOR VISIT [...] Insomnia disorder related to another mental disorder (58322921) Insomnia 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) [...] Location Date Provider Diagnosis [facility], [address] [place] [address] 09/07/2024 Abril Mustafa Insomnia due to other [...] Details Provider Name:Abril Mustafa, 11/08/2024 03:00:00 PM, [address] [place] [address], Suite [facility], [place], [address], [phone] Progress Notes * AKOSUA MULLENDOB:[birth year] (69 yo M)Acc No.[id number]:09/07/2024 Progress Notes Patient: AKOSUA HANSON Provider: Inna gibbs Ramsey :1955 A ge:69 Y S ex:Male Date:09/07/2024 Phone: Address:[facility] [address] Perez, [place], [place] Subjective: * Chief Complaints: * 1 [...] * Electronic signature of Melissa Mustafa on 11/07/2024 at 09:46 AM EDT Sign off status: Pending * Provider: Inna Mustafa Date: 09/07/2024 Generated for Abdelrahman kong/Papa/oLgan on: 11/07/2024 09:46 AM EDT
--- OUTSIDE RECORDS SUMMARY | 2024-10-08 10:30 | XMS_ITS ---
Author Organization [facility] [place] Address [address] [place] [address] [address] [place] [address] Care Team Providers Care Commercial Interior Designer Name Role Phone Abril Mustafa Unavailable [phone] REASON FOR VISIT 1 MOUTH Medications Medication [...] Unknown Encounters Encounter Location Date Provider Diagnosis [facility] [address] [facility] [address] [place] [address] 10/08/2024 Abril Mustafa Plan Of Treatment Next Appt Details Provider Name:Abril Mustafa, 11/08/2024 03:00:00 PM, [address] [facility], Suite [facility], [place], [address], [phone] Progress Notes * AKOSUA MULLENDOB:[birth year] (69 yo M)Acc No.[id number]:10/08/2024 Progress Notes Patient: AKOSUA HANSON Provider: Inna Mustafa :1955 A ge:69 Y S ex:Male Date:10/08/2024 Phone: Address:[address] [place], [place] [address]lu Perez, [address] [facility], [phone] Subjective: * Chief Complaints: * 1 MOUTH [...] 0 10/08/2024 Generated for Abdelrahman kong/Papa/Logan on: 11/07/2024 09:46 AM EDT
--- NOTE | ~2024-11-06 | XR_ITS ---
EXAMINATION: XR KNEE, RIGHT CLINICAL INFORMATION: M25.561 - Pain in right knee COMPARISON: None available. TECHNIQUE: AP lateral and sunrise views of the right knee. FINDINGS: Mild joint space narrowing involving the medial compartment. No acute cortical disruption or malalignment. No lytic or blastic lesions. Probable small suprapatellar bursa joint effusion. Vascular calcifications. XR/XR knee RT 3V IMPRESSION: Mild medial compartment osteoarthrosis/osteoarthritis. Atherosclerosis disease, peripheral. Electronically signed by: Nitin Donis MD 11/06/2024 07:46 AM EDT
--- OUTSIDE RECORDS SUMMARY | 2024-11-07 09:46 | XMS_ITS | Clinical Summary ---
Author Organization [facility] Address [address] [place] [address] Care Team Providers Care Buffing And Polishing Wheel Repairer Name Role Phone Horacio Young MD Primary Care Provider Allergies No known active allergies Medications VENTOLIN [...] patient's age to complete this topic Insurance [facility] Care Teams Buffing And Polishing Wheel Repairer Relationship Specialty Start Date End Date Horacio Young MD [address] [place] [id number] PCP - General 11/10/16
--- OUTSIDE RECORDS SUMMARY | 2024-11-07 09:46 | XMS_ITS | Clinical Summary ---
Author Organization [facility] Address [address] [place] [address] Care Team Providers Care Grocery Manager Name Role Phone Horacio Young MD Primary Care Provider [phone] Allergies No known active allergies Medications Medication [...] age to complete this topic Care Teams Grocery Manager Relationship Specialty Start Date End Date Horacio Young MD [address] [place], [place] [phone] PCP - General Internal Medicine 07/11/17
--- OUTSIDE RECORDS SUMMARY | 2024-11-07 09:47 | XMS_ITS | Patient Health Record ---
Author Organization [facility] [place] Address [address] [place] [address] Care Team Providers Care Steel Analyst Name Role Phone Cesar Tafoya Unavailable [phone] Migration, Provider Unavailable Unavailable Abril Mustafa Unavailable [phone] Brandy Herron Unavailable [phone] Allergies No Known Allergies Reason For Referral [...] Insomnia disorder related to another mental disorder ([id number]) Insomnia 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) [...] Location Date Provider Diagnosis [facility], [address] [address] 03/27/2024 Cesar Tafoya [facility], [address] [address] 03/27/2024 Provider Migration [facility], [address] [address] 06/21/2024 Cesar Tafoya [facility], [address] [address] 08/28/2024 Cesar Tafoya [facility], [address] [address] 09/07/2024 Abril Mustafa Insomnia due to other mental disorder F51.05 [facility], [address] [address] 10/19/2024 Brandy Herron [facility], [address] [address] 10/26/2024 Abril Mustafa Asthma, unspecified asthma severity, unspecified whether complicated, unspecified whether persistent J45.909 [facility], [address] [address] 10/05/2024 Abril Mustafa Assessments Encounter Date Diagnosis [...] Details Provider Name:Abril Mustafa, 11/08/2024 03:00:00 PM, [address] [place] [address], [address], [place], [address], [id number] Insurance Providers Payer Name Payer Address Payer Phone Subscriber Number Group Number Insured Name Patient Relationship to Insured Coverage Start Date Coverage End Date [facility] [address] [address] [place] [address] [id number] AKOSUA MULLEN Self - patient is the insured Medical (General) History Medical History History ICD Code NO OTHER PROVIDERS Surgical History Surgery Date(Month/Year) ANGOPLASTY VICTRECTOMY GLAUCOMA HEART ATTACK 6 STENT Hospitalization History Reason Date(Month/Year) FOR DEHYDRATION 10/21
--- OUTSIDE RECORDS SUMMARY | 2024-11-07 09:47 | XMS_ITS | Clinical Summary ---
Author Organization LL [address] [place] [address] [place] [phone] Phone Care Team Providers Care Power Electronics Engineer Name Role Phone Horacio Young MD Primary Care Provider [phone] Surgical History Surgery Date Site/Laterality Comments SHOULDER [...] LAB CHEMISTRY METHOD 09/07/2024 4:02 PM EDT [facility] Microalb, Ur 23.9 0.0 - 29.0 mg/L LAB CHEMISTRY METHOD 09/07/2024 4:02 PM EDT [facility] Microalb/Creat Ratio 15 <30 mg/g creat LAB CHEMISTRY METHOD 09/07/2024 4:02 PM EDT [facility] Urine Urine specimen obtained by clean catch procedure / Unknown Non-blood Collection / Unknown 09/07/2024 11:45 AM EDT 09/07/2024 1:06 PM EDT us Cesar FOWLER LAB URINE ORDERABLES Final Res ult Performing Organization Address [facility]/ZIP Co de Phone Number [facility] [address] [place] [address], * Prostate specific antigen screen (09/07/2024 11:38 AM EDT) PSA 0.96 0.00 - 4.00 ng/mL LAB CHEMISTRY METHOD 09/07/2024 4:06 PM EDT [facility] Blood Venous blood specimen / Unknown Venipuncture / Unknown 09/07/2024 11:38 AM EDT 09/07/2024 1:06 PM EDT Narrative [facility] - 09/07/2024 4:06 PM EDT The Siemens Advia Centaur Chemiluminescent Immunoassay is used. Results obtained with different assay methods or kits cannot be used interchangeably. Results cannot be interpreted as absolute evidence of the presence or absence of malignant disease. us Cesar FOWLER LAB BLOOD ORDERABLES Final Res ult Performing Organization Address City/[facility]/ZIP Co de Phone Number [facility] [address] [place] [address], [place] [phone] * Lipid panel with reflex to direct LDL (09/07/2024 11:38 AM EDT) Cholesterol 122 0 - 200 mg/dL LAB CHEMISTRY METHOD 09/07/2024 2:44 PM EDT [facility] Triglycerides 68 0 - 150 mg/dL LAB CHEMISTRY METHOD 09/07/2024 2:44 PM EDT [facility] HDL 71 >=40 mg/dL LAB CHEMISTRY METHOD 09/07/2024 2:44 PM EDT [facility] LDL Calculated 37 0 - 100 mg/dL LAB CHEMISTRY METHOD 09/07/2024 2:44 PM EDT [facility] VLDL Cholesterol Neo 13.6 mg/dL LAB CHEMISTRY METHOD 09/07/2024 2:44 PM EDT [facility] Non HDL Chol. (LDL+VLDL) 51 <145 mg/dL LAB CHEMISTRY METHOD 09/07/2024 2:44 PM EDT [facility] Chol/HDL Ratio 1.7 0.0 - 4.4 LAB CHEMISTRY METHOD 09/07/2024 2:44 PM EDT [facility] Blood Venous blood specimen / Unknown Venipuncture / Unknown 09/07/2024 11:38 AM EDT 09/07/2024 1:06 PM EDT Cesar FOWLER LAB BLOOD ORDERABLES Final Res ult [facility] [address] [place] [address], [place] [phone] * (ABNORMAL) CBC auto differential (09/07/2024 11:38 AM EDT) WBC 4.5(L) 4.8 - 10.8 K/mcL LAB HEMETOLOGY METHOD 09/07/2024 1:17 PM EDT [facility] RBC 3.60(L) 4.50 - 5.50 M/mcL LAB HEMETOLOGY METHOD 09/07/2024 1:17 PM EDT [facility] Hemoglobin 12.2(L) 13.5 - 17.5 g/dL LAB HEMETOLOGY [facility] Hematocrit 35.2(L) 42.0 - 54.0 % LAB HEMETOLOGY METHOD 09/07/2024 1[facility] MCV 97.2 79.0 - 98.0 FL LAB HEMETOLOGY METHOD 09/07/2024 1:17 PM [facility] MCH 33.7(H) 27.0 - 32.0 pcg LAB HEMETOLOGY METHOD 09/07/2024 1:17 PM [facility] MCHC 34.7 32.0 - 37.0 g/dL LAB HEMETOLOGY METHOD 09/07/2024 1:17 PM [facility] RDW 12.3 11.0 - 15.0 % LAB HEMETOLOGY METHOD 09/07/2024 1:17 PM [facility] Platelets 181 130 - 400 K/mcL LAB HEMETOLOGY METHOD 09/07/2024 1:17 PM [facility] MPV 11.5(H) 7.0 - 11.0 FL LAB HEMETOLOGY METHOD 09/07/2024 1:[facility] NRBC 0.0 <1.0 % LAB HEMETOLOGY METHOD 09/07/2024 1:[facility] NRBC Absolute 0.00 <0.10 K/mcL LAB HEMETOLOGY METHOD 09/07/2024 1:[facility] Neutrophils Relative 60.9 % LAB HEMETOLOGY METHOD 09/07/2024 1:[facility] Lymphocytes Relative 26.7 % LAB HEMETOLOGY METHOD 09/07/2024 1:17 PM EDT [facility] Monocytes Relative 9.7 % LAB HEMETOLOGY METHOD 09/07/2024 1:17 PM [facility] Eosinophils Relative 1.6 % LAB HEMETOLOGY METHOD 09/07/2024 1:17 PM [facility] Basophils Relative 0.9 % LAB HEMETOLOGY METHOD 09/07/2024 1:17 PM [facility] Immature Granulocytes Relative 0.2 % LAB HEMETOLOGY METHOD 09/07/2024 1:17 PM [facility] Neutrophils Absolute 2.71 1.50 - 7.00 K/mcL LAB HEMETOLOGY METHOD 09/07/2024 1:17 PM [facility] Lymphocytes Absolute 1.19 1.00 - 5.00 K/mcL LAB HEMETOLOGY METHOD 09/07/2024 1:17 PM [facility] Monocytes Absolute 0.43 0.20 - 1.00 K/mcL LAB HEMETOLOGY METHOD 09/07/2024 1:17 PM [facility] Eosinophils Absolute 0.07 0.00 - 0.50 K/mcL LAB HEMETOLOGY METHOD 09/07/2024 1:17 PM [facility] Basophils Absolute 0.04 0.00 - 0.20 K/mcL LAB HEMETOLOGY METHOD 09/07/2024 1:17 PM [facility] Immature Granulocytes Absolute 0.01 0.00 - 0.03 K/mcL LAB HEMETOLOGY METHOD 09/07/2024 1:17 PM [facility] Blood Venous blood specimen / Unknown Venipuncture / Unknown 09/07/2024 11:38 AM EDT 09/07/2024 1:07 PM EDT us Cesar FOWLER LAB BLOOD ORDERABLES Final Res ult Performing Organization Address [facility]/ZIP Co de Phone Number [facility] [address] [place] [address], * Vitamin D 25 hydroxy (09/07/2024 11:38 AM EDT) Vit D, 25-Hydroxy 45.4 30.0 - 80.0 ng/mL LAB CHEMISTRY METHOD 09/07/2024 4:06 PM EDT [facility] Blood Venous blood specimen / Unknown Venipuncture / Unknown 09/07/2024 11:38 AM EDT 09/07/2024 1:06 PM EDT Cesar FOWLER LAB BLOOD ORDERABLES Final Res ult Performing Organization Address [facility] Co de Phone Number [facility] [address] [place] [address], * Thyroid stimulating hormone (09/07/2024 11:38 AM EDT) TSH 1.41 0.40 - 4.00 mcIU/mL LAB CHEMISTRY METHOD 09/07/2024 4:56 PM EDT [facility] Blood Venous blood specimen / Unknown Venipuncture / Unknown 09/07/2024 11:38 AM EDT 09/07/2024 1:06 PM EDT Cesar FOWLER LAB BLOOD ORDERABLES Final Res ult Performing Organization Address [facility]/ZIP Co de Phone Number [facility] [address] [place] [address], * Thyroxine free (09/07/2024 11:38 AM EDT) Free T4 1.04 0.70 - 1.80 ng/dL LAB CHEMISTRY METHOD 09/07/2024 4:06 PM EDT [facility] Blood Venous blood specimen / Unknown Venipuncture / Unknown 09/07/2024 11:38 AM EDT 09/07/2024 1:06 PM EDT Cesar FOWLER LAB BLOOD ORDERABLES Final Res ult Performing Organization Address [facility]/ZIP Co de Phone Number [facility] [address] [place] [address], * B-type natriuretic peptide (09/07/2024 11:38 AM EDT) BNP 59 <=100 pcg/mL LAB CHEMISTRY METHOD 09/07/2024 2:01 PM EDT [facility] Blood Venous blood specimen / Unknown Venipuncture / Unknown 09/07/2024 11:38 AM EDT 09/07/2024 1:07 PM EDT Cesar FOWLER LAB BLOOD ORDERABLES Final Res ult Performing Organization Address [facility]/ZIP Co de Phone Number [facility] [address] [place] [address], * Magnesium (09/07/2024 11:38 AM EDT) Magnesium 1.9 1.9 - 2.6 mg/dL LAB CHEMISTRY METHOD 09/07/2024 2:18 PM EDT [facility] Blood Venous blood specimen / Unknown Venipuncture / Unknown 09/07/2024 11:38 AM EDT 09/07/2024 1:06 PM EDT Cesar FOWLER LAB BLOOD ORDERABLES Final Res ult [facility] [address] [place] [address], [place] [phone] * Lipase (09/07/2024 11:38 AM EDT) Pathologist [facility] Lipase 60 13 - 75 unit/L LAB CHEMISTRY METHOD 09/07/2024 2:44 PM EDT [facility] Blood Venous blood specimen / Unknown Venipuncture / Unknown 09/07/2024 11:38 AM EDT 09/07/2024 1:06 PM EDT us Cesar FOWLER LAB BLOOD ORDERABLES Final Res ult Performing Organization Address City/[facility]/ZIP Co de Phone Number [facility] [address] [place] [address], [place] [phone] * Hemoglobin A1c (09/07/2024 11:38 AM EDT) [facility] [address] Hemoglobin A1C 5.2 <6.5 % LAB CHEMISTRY METHOD 09/07/2024 9:22 PM EDT [facility] Mean Bld Glu Estim. 103 mg/dL LAB CHEMISTRY METHOD 09/07/2024 9:22 PM EDT [facility] Blood Venous blood specimen / Unknown Venipuncture / Unknown 09/07/2024 11:38 AM EDT 09/07/2024 1:07 PM EDT us Cesar FOWLER LAB BLOOD ORDERABLES Final Res ult Performing Organization Address [facility]/ZIP Co de Phone Number [facility] [address] [place] [address], [place] [phone] * (ABNORMAL) Folate (09/07/2024 11:38 AM EDT) [facility] [address] Folate >20.0(H) 2.8 - 17.0 ng/ml LAB CHEMISTRY METHOD 09/07/2024 2:44 PM EDT [facility] Blood Venous blood specimen / Unknown Venipuncture / Unknown 09/07/2024 11:38 AM EDT 09/07/2024 1:06 PM EDT Cesar FOWLER LAB BLOOD ORDERABLES Final Res ult Performing Organization Address City/[facility]/ZIP Co de Phone Number [facility] [address] [place] [address], [place] [phone] * Vitamin B12 (09/07/2024 11:38 AM EDT) Vitamin B-12 538 250 - 900 pcg/mL LAB CHEMISTRY METHOD 09/07/2024 2:44 PM EDT [facility] Blood Venous blood specimen / Unknown Venipuncture / Unknown 09/07/2024 11:38 AM EDT 09/07/2024 1:06 PM EDT Cesar FOWLER LAB BLOOD ORDERABLES Final Res ult Performing Organization Address [facility] Co de Phone Number [facility] [address] [place] [address], [place] [phone] * Amylase (09/07/2024 11:38 AM EDT) Amylase 76 25 - 115 unit/L LAB CHEMISTRY METHOD 09/07/2024 2:18 PM EDT [facility] Blood Venous blood specimen / Unknown Venipuncture / Unknown 09/07/2024 11:38 AM EDT 09/07/2024 1:06 PM EDT Cesar FOWLER LAB BLOOD ORDERABLES Final Res ult Performing Organization Address City/[facility]/ZIP Co de Phone Number [facility] [address] [place] [address], [place] [phone] * Comprehensive metabolic panel (09/07/2024 11:38 AM EDT) Sodium 140 133 - 145 mmol/L LAB CHEMISTRY METHOD 09/07/2024 2:44 PM EDT [facility] Potassium 4.3 3.5 - 5.5 mmol/L LAB CHEMISTRY METHOD 09/07/2024 2:44 PM [facility] Chloride 107 96 - 110 mmol/L LAB CHEMISTRY METHOD 09/07/2024 2:44 PM [facility] CO2 27 21 - 32 mmol/L LAB CHEMISTRY METHOD 09/07/2024 2:44 PM [facility] Anion Gap 6 3 - 11 LAB CHEMISTRY METHOD 09/07/2024 2:44 PM [facility] Glucose 78 70 - 100 mg/dL LAB CHEMISTRY METHOD 09/07/2024 2:44 PM [facility] BUN 22 5 - 25 mg/dL LAB CHEMISTRY METHOD 09/07/2024 2:44 PM [facility] Creatinine 1.14 0.70 - 1.30 mg/dL LAB CHEMISTRY METHOD 09/07/2024 2:44 PM [facility] eGFR 70 >=60 mL/min/1. 73m2 LAB CHEMISTRY METHOD 09/07/2024 2:44 PM [facility] Comment:Calculation based on the Chronic Kidney Disease Epidemiology Collaboration (CKD-EPI) equation refit without adjustment for race. BUN/Creatinine Ratio 19.3 LAB CHEMISTRY METHOD 09/07/2024 2:44 PM [facility] Calcium 9.0 8.5 - 10.5 mg/dL LAB CHEMISTRY METHOD 09/07/2024 2:44 PM [facility] AST (SGOT) 21 10 - 42 unit/L LAB CHEMISTRY METHOD 09/07/2024 2:44 PM [facility] ALT (SGPT) 29 10 - 60 unit/L LAB CHEMISTRY METHOD 09/07/2024 2:44 PM [facility] Alkaline Phosphatase 66 42 - 121 unit/L LAB CHEMISTRY METHOD 09/07/2024 2:44 PM [facility] Total Protein 6.7 6.0 - 8.0 g/dL LAB CHEMISTRY METHOD 09/07/2024 2:44 PM EDT [facility] Albumin 3.9 3.2 - 5.0 g/dL LAB CHEMISTRY METHOD 09/07/2024 2:44 PM EDT [facility] Total Bilirubin 1.0 0.0 - 1.4 mg/dL LAB CHEMISTRY METHOD 09/07/2024 2:44 PM EDT [facility] Blood Venous blood specimen / Unknown Venipuncture / Unknown 09/07/2024 11:38 AM EDT 09/07/2024 1:06 PM EDT Cesar FOWLER LAB BLOOD ORDERABLES Final Res ult [facility] [address] [place] [address], from Last 3 Months Insurance MEDICARE [facility] [place] [id number] Care Teams Power Electronics Engineer Relationship Specialty Start Date End Date Horacio Young MD [address] [place] [phone] PCP - General Internal Medicine 07/11/17
== END 2024-11-06 08:30 | disposition home or self-care (01) ==
LOC: HO.HOSX 08:29
PROVIDERS: Visit Provider Orthopaedic Surgery
DX: M25.312 Other instability, left shoulder (principal); M17.11 Unilateral primary osteoarthritis, right knee
CPT/HCPCS: 20610; 73562; J1010; J2003

== ENCOUNTER → 2024-11-25 08:44 | Outpatient (BNV) | payer OTHER, SELFPAY | PROVIDERS: Visit Provider Radiology Diagnostic Radiology | DX: M75.102 Unspecified rotator cuff tear or rupture of left shoulder, not specified as traumatic (principal); M19.012 Primary osteoarthritis, left shoulder; M75.22 Bicipital tendinitis, left shoulder | CPT/HCPCS: 73221 ==

== ENCOUNTER 2024-11-25 08:52 | Outpatient (REF) | payer OTHER, SELFPAY ==
--- OUTSIDE RECORDS SUMMARY | 2024-06-21 11:30 | XMS_ITS ---
Author Organization [facility] [place] Address [address] [facility] [address] [place] [address] Care Team Providers Care Car Salesperson Name Role Phone Cesar Tafoya Unavailable [phone] REASON FOR VISIT Follow-up Appt Encounters Encounter Location Date Provider Diagnosis [facility], [address] [place] [phone] 06/21/2024 Cesar Tafoya Plan Of Treatment Next Appt Details Provider Name:Abril Mustafa, 02/08/2025 01:00:00 PM, [address] [place] [address], [address], [place], [address], [phone] Progress Notes * AKOSUA MULLENDOB:[birth year] (69 yo M)Acc No.[id number]:06/21/2024 Progress Notes Patient: AKOSUA HANSON Provider: Zandra FOWLER :1955 A ge:69 Y S ex:Male Date:06/21/2024 Phone: Address:[address], [facility] [phone] Subjective: * Chief Complaints: * F ollow-up Appt * Ocular Surgical History: Objective: Vision Examination: * Electronic signature of Flakito Tafoya PA-C on 11/25/2024 at 08:58 AM EDT Sign off status: Pending * Provider: Zandra FOWLER Date: 0 06/21/2024 Generated for Printi ng/Faxing/eTransmitting on: 0 11/25/2024 08:58 AM EDT
--- OUTSIDE RECORDS SUMMARY | 2024-08-28 12:00 | XMS_ITS ---
Author Organization [facility] [place] Address [address] [facility] [address] [place] [address] Care Team Providers Care Linen Room Custodian Name Role Phone Cesar Tafoya Unavailable [phone] Allergies No Known Allergies REASON FOR VISIT [...] 08/28/2024 Encounters Encounter Location Date Provider Diagnosis [facility], [place] [address] [facility] [address] [place] [address] 08/28/2024 Cesar Tafoya Assessments Encounter Date Diagnosis [...] BP Provider Name:Abril Barrosgerry, 02/08/2025 01:00:00 PM, [address] [place] [address], [address], [place], [address], [phone] Progress Notes * AKOSUA MULLENDOB:[birth year] (69 yo M)Acc No.[id number]:08/28/2024 Progress Notes Patient: AKOSUA HANSON Provider: Zandra FOWLER :1955 A ge:69 Y S ex:Male Date:08/28/2024 Phone: Address:[address] [place], [place] [address]lu Perez, [place], [place] Subjective: * Chief Complaints: * F [...] reconciled with the patient * Allergies: Vern .Julioergies Verified. Objective: * Vitals: B P:99/48mm Hg, HR:50/min, RR:20/min, Temp:97.1F, Oxygen sat %:95%, Wt:151lbs, Wt- k.49 kg. Vision Examination: Assessment: * Assessment: FRANKIE SEES A PROVIDER FOR THE MEDICATION [...] status: Pending * Provider: Zandra FOWLER Date: 08/28/2024 Generated for Abdelrahman kong/Papa/Logan on: 11/25/2024 08:58 AM EDT
--- OUTSIDE RECORDS SUMMARY | 2024-09-07 06:45 | XMS_ITS ---
Author Organization [facility] [place] Address [address] [facility] [address] [place] [address] Care Team Providers Care Scientific Database Curator Name Role Phone Abril Mustafa Unavailable [phone] Allergies No Known Allergies REASON FOR VISIT [...] Insomnia disorder related to another mental disorder ([id number]) Insomnia 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) [...] Location Date Provider Diagnosis [facility], [address] [place] [address] 09/07/2024 Abril Mustafa Insomnia due to other [...] Details Provider Name:Abril Mustafa, 02/08/2025 01:00:00 PM, [address] [place] [address], Suite [facility], [place], [address], [phone] Progress Notes * AKOSUA MULLENDOB:[birth year] (69 yo M)Acc No.[id number]:09/07/2024 Progress Notes Patient: AKOSUA HANSON Provider: Inna gibbs Ramsey :1955 A ge:69 Y S ex:Male Date:09/07/2024 Phone: Address:[facility] Fausto Perez, [place], [place] Subjective: * Chief Complaints: * 1 month f/liz over BP recorded at home * Medical History: NO OTHER PROVIDERS Medical History Verified * Surgical History: ANGOPLASTY VICTRECTOMY GLAUCOMA HEART ATTACK 6 STENT Surgical History verified. * Hospitalization/Major Diagno stic Procedure: FOR DEHYDRATION 10/21 Hospitalization Verified. * Family History: HEALTHY CARE PROXY RAMANDO MULLEN-. * Social History: D ENIES SMOKING [...] * Electronic signature of Melissa Mustafa on 11/25/2024 at 08:58 AM EDT Sign off status: Pending * Provider: Inna Mustafa Date: 09/07/2024 Generated for Abdelrahman kong/Papa/Logan on: 11/25/2024 08:58 AM EDT
--- OUTSIDE RECORDS SUMMARY | 2024-10-08 10:30 | XMS_ITS ---
Author Organization [facility] [place] Address [address] [place] [address] [address] [place] [address] Care Team Providers Care Banking And Finance Instructor Name Role Phone Abril Mustafa Unavailable [phone] REASON FOR VISIT 1 MOUTH Medications Medication [...] Unknown Encounters Encounter Location Date Provider Diagnosis [facility] [address] [facility] [address] [place] [address] 10/08/2024 Abril Mustafa Plan Of Treatment Next Appt Details Provider Name:Abril Mustafa, 02/08/2025 01:00:00 PM, [address] [facility], Suite [facility], [place], [address], [phone] Progress Notes * AKOSUA MULLENDOB:[birth year] (69 yo M)Acc No.[id number]:10/08/2024 Progress Notes Patient: AKOSUA HANSON Provider: Inna Mustafa :1955 A ge:69 Y S ex:Male Date:10/08/2024 Phone: Address:[address] [place], [place] [address]lu Perez, W [facility], [phone] Subjective: * Chief Complaints: * 1 MOUTH [...] 0 10/08/2024 Generated for Abdelrahman kong/Papa/Logan on: 11/25/2024 08:58 AM EDT
--- OUTSIDE RECORDS SUMMARY | 2024-11-08 11:00 | XMS_ITS ---
Author Organization [facility] [place] Address [address] [place] [address] Care Team Providers Care Oxidation Operator Name Role Phone Abril Mustafa Unavailable [phone] Allergies No Known Allergies REASON FOR VISIT [...] Status Risk Notes Problem Iron deficiency anemia (82432318) Iron deficiency anemia, unspecified (D50.9) Active confirmed Vital Signs Temperature 97.1 degrees Fahrenheit 11/09/19 25 Blood pressure systolic 129 mm Hg 11/09/19 25 Blood pressure diastolic 71 mm Hg 025 Heart Rate 63 /min 11/08/2024 Respiratory Rate 19 /min 11/08/2024 Weight 150.6 lbs 11/08/2024 Oximetry 98 % 11/08/2024 Weight-kg 68.31 kg 11/08/2024 Encounters Encounter Location Date Provider Diagnosis [facility] [place] [address] [place] [address] 11/08/2024 Abril Mustafa Follow-up exam Z09 and [...] Provider Name:Abril Mustafa, 02/08/2025 01:00:00 PM, [address], [address], [place], [address], [phone] History and Physical Notes * Examination Category [...] * AKOSUA MULLENDOB:[birth year] (69 yo M)Acc No.[id number]:11/08/2024 Progress Notes Patient: AKOSUA HANSON Provider: Inna Barrosgerry :1955 A ge:69 Y S ex:Male Date:11/08/2024 Phone: Address:[facility] [address], [place], [place] Subjective: * Chief Complaints: * F [...] (Reason: labs) * Electronic signature of Melissa Mustafa on 11/25/2024 at 08:58 AM EDT Sign off status: Pending * Provider: Inna Mustafa Date: 11/08/2024 Generated for Abdelrahman kong/Papa/Rosioitting on: 11/25/2024 08:58 AM EDT
--- NOTE | ~2024-11-25 | MR_ITS ---
CLINICAL HISTORY: M25.312 - Other instability, left shoulder Exam: MRI of the left shoulder without intravenous contrast. Comparison: Radiographs May 30, 2024. Findings: Humeral head is high-riding contacting the undersurface of the acromion seen on the patient's prior radiographs. Full-thickness, full width tears of both the supraspinatus and infraspinatus tendons are identified. Tendons are retracted to the level of the medial humeral head with extensive fatty atrophy of the muscle groups. Moderate subscapularis tendinopathy without tear. Teres minor is intact. Severe degenerative change of the glenohumeral joint with complete loss of the joint spacing complete cartilage denudation of the glenoid and humeral head. Extensive subcortical bone marrow edema and subcortical cystic change. There are findings suggesting impending subcortical collapse of the humeral head. There is a large glenohumeral joint effusion with free egress fluid outside of the confines of the glenohumeral joint. There is complete degeneration of the glenoid labrum. The tendon of the long head of the biceps is appropriately positioned within the bicipital groove. There is severe tendinopathy of the intra-articular portion of the tendon of the long head of the biceps. There is a type 2 acromion. Severe AC joint DJD. Impression: 1. Chronic massive rotator cuff tear. 2. 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 3. Biceps tendinopathy. This document has been electronically signed by: Tomer Watts MD on 11/26/2024 22:56:02
--- OUTSIDE RECORDS SUMMARY | 2024-11-25 08:58 | XMS_ITS | Clinical Summary ---
Author Organization [facility] Address [address] [place] [address] Care Team Providers Care Manager Background Name Role Phone Horacio Young MD Primary Care Provider [phone] Allergies No known active allergies Medications Medication [...] age to complete this topic Care Teams Manager Background Relationship Specialty Start Date End Date Horacio Young MD [address] [place], [place] [phone] PCP - General Internal Medicine 07/11/17
--- OUTSIDE RECORDS SUMMARY | 2024-11-25 08:58 | XMS_ITS | Clinical Summary ---
Author Organization [facility] Address [address] [place] [address] Care Team Providers Care Customer Technical Services Manager Name Role Phone Horacio Young MD Primary Care Provider [phone] Allergies No known active allergies Medications VENTOLIN [...] patient's age to complete this topic Insurance [facility] Care Teams Customer Technical Services Manager Relationship Specialty Start Date End Date Horacio Young MD [address] [place] [phone] PCP - General 11/10/16
--- OUTSIDE RECORDS SUMMARY | 2024-11-25 08:58 | XMS_ITS | Clinical Summary ---
Author Organization [facility] [address] [place] [address] [place] [phone] Phone Care Team Providers Care Hydro Technician Name Role Phone Horacio Young MD Primary Care Provider [phone] Surgical History Surgery Date Site/Laterality Comments SHOULDER [...] LAB CHEMISTRY METHOD 09/07/2024 4:02 PM EDT [facility] Microalb, Ur 23.9 0.0 - 29.0 mg/L LAB CHEMISTRY METHOD 09/07/2024 4:02 PM EDT [facility] Microalb/Creat Ratio 15 <30 mg/g creat LAB CHEMISTRY METHOD 09/07/2024 4:02 PM EDT [facility] Urine Urine specimen obtained by clean catch procedure / Unknown Non-blood Collection / Unknown 09/07/2024 11:45 AM EDT 09/07/2024 1:06 PM EDT us C[facility] URINE ORDERABLES Final Res ult Performing Organization Address [facility]/ZIP Co de Phone Number [facility] [address] [place] [address], * Prostate specific antigen screen (09/07/2024 11:38 AM EDT) PSA 0.96 0.00 - 4.00 ng/mL LAB CHEMISTRY METHOD 09/07/2024 4:06 PM EDT [facility] Blood Venous blood specimen / Unknown Venipuncture / Unknown 09/07/2024 11:38 AM EDT 09/07/2024 1:06 PM EDT Narrative [facility] - 09/07/2024 4:06 PM EDT The Siemens Advia Centaur Chemiluminescent Immunoassay is used. Results obtained with different assay methods or kits cannot be used interchangeably. Results cannot be interpreted as absolute evidence of the presence or absence of malignant disease. us [facility]esar [facility] LAB BLOOD ORDERABLES Final Res ult Performing Organization Address City/[facility]/ZIP Co de Phone Number [facility] [address] [place] [address], [place] [phone] * Lipid panel with reflex to direct LDL (09/07/2024 11:38 AM EDT) Cholesterol 122 0 - 200 mg/dL LAB CHEMISTRY METHOD 09/07/2024 2:44 PM EDT [facility] Triglycerides 68 0 - 150 mg/dL LAB CHEMISTRY METHOD 09/07/2024 2:44 PM EDT [facility] HDL 71 >=40 mg/dL LAB CHEMISTRY METHOD 09/07/2024 2:44 PM EDT [facility] LDL Calculated 37 0 - 100 mg/dL LAB CHEMISTRY METHOD 09/07/2024 2:44 PM EDT [facility] VLDL Cholesterol Neo 13.6 mg/dL LAB CHEMISTRY METHOD 09/07/2024 2:44 PM EDT [facility] Non HDL Chol. (LDL+VLDL) 51 <145 mg/dL LAB CHEMISTRY METHOD 09/07/2024 2:44 PM EDT [facility] Chol/HDL Ratio 1.7 0.0 - 4.4 LAB CHEMISTRY METHOD 09/07/2024 2:44 PM EDT [facility] Blood Venous blood specimen / Unknown Venipuncture / Unknown 09/07/2024 11:38 AM EDT 09/07/2024 1:06 PM EDT [facility] LAB BLOOD ORDERABLES Final Res ult [facility] [address] [place] [address], [place] [phone] * (ABNORMAL) CBC auto differential (09/07/2024 11:38 AM EDT) WBC 4.5(L) 4.8 - 10.8 K/mcL LAB HEMETOLOGY METHOD 09/07/2024 1:17 PM EDT [facility] RBC 3.60(L) 4.50 - 5.50 M/mcL LAB HEMETOLOGY METHOD 09/07/2024 1:17 PM EDT [facility] Hemoglobin 12.2(L) 13.5 - 17.5 g/dL LAB HEMETOLOGY METHOD 09/07[facility]2024 [facility] Hematocrit 35.2(L) 42.0 - 54.0 % LAB HEMETOLOGY METHOD 09/07/2024 1:17 PM [facility] MCV 97.2 79.0 - 98.0 FL LAB HEMETOLOGY METHOD 09/07/2024 1:17 PM [facility] MCH 33.7(H) 27.0 - 32.0 pcg LAB HEMETOLOGY METHOD 09/07/2024 1:17 PM [facility] MCHC 34.7 32.0 - 37.0 g/dL LAB HEMETOLOGY METHOD 09/07/2024 1:17 PM [facility] RDW 12.3 11.0 - 15.0 % LAB HEMETOLOGY METHOD 09/07/2024 1:17 PM [facility] Platelets 181 130 - 400 K/mcL LAB HEMETOLOGY METHOD 09/07/2024 1:17 PM [facility] MPV 11.5(H) 7.0 - 11.0 FL LAB HEMETOLOGY METHOD 09/07/2024 1:[facility] NRBC 0.0 <1.0 % LAB HEMETOLOGY METHOD 09/07/2024 1:17 [facility] NRBC Absolute 0.00 <0.10 K/mcL LAB HEMETOLOGY METHOD 09/07/2024 1:17 PM [facility] Neutrophils Relative 60.9 % LAB HEMETOLOGY METHOD 09/07/2024 1:17 PM [facility] Lymphocytes Relative 26.7 % LAB HEMETOLOGY METHOD 09/07/2024 1:17 PM EDT [facility] Monocytes Relative 9.7 % LAB HEMETOLOGY METHOD 09/07/2024 1:17 PM [facility] Eosinophils Relative 1.6 % LAB HEMETOLOGY METHOD 09/07/2024 1:17 PM [facility] Basophils Relative 0.9 % LAB HEMETOLOGY METHOD 09/07/2024 1:17 PM [facility] Immature Granulocytes Relative 0.2 % LAB HEMETOLOGY METHOD 09/07/2024 1:17 PM [facility] Neutrophils Absolute 2.71 1.50 - 7.00 K/mcL LAB HEMETOLOGY METHOD 09/07/2024 1:17 PM [facility] Lymphocytes Absolute 1.19 1.00 - 5.00 K/mcL LAB HEMETOLOGY METHOD 09/07/2024 1:17 PM [facility] Monocytes Absolute 0.43 0.20 - 1.00 K/mcL LAB HEMETOLOGY METHOD 09/07/2024 1:17 PM [facility] Eosinophils Absolute 0.07 0.00 - 0.50 K/mcL LAB HEMETOLOGY METHOD 09/07/2024 1:17 PM [facility] Basophils Absolute 0.04 0.00 - 0.20 K/mcL LAB HEMETOLOGY METHOD 09/07/2024 1:17 PM [facility] Immature Granulocytes Absolute 0.01 0.00 - 0.03 K/mcL LAB HEMETOLOGY METHOD 09/07/2024 1:17 PM [facility] Blood Venous blood specimen / Unknown Venipuncture / Unknown 09/07/2024 11:38 AM EDT 09/07/2024 1:07 PM EDT us Cesar [facility] LAB BLOOD ORDERABLES Final Res ult Performing Organization Address [facility]/ZIP Co de Phone Number [facility] [address] [place] [address], * Vitamin D 25 hydroxy (09/07/2024 11:38 AM EDT) Vit D, 25-Hydroxy 45.4 30.0 - 80.0 ng/mL LAB CHEMISTRY METHOD 09/07/2024 4:06 PM EDT [facility] Blood Venous blood specimen / Unknown Venipuncture / Unknown 09/07/2024 11:38 AM EDT 09/07/2024 1:06 PM EDT [facility] LAB BLOOD ORDERABLES Final Res ult Performing Organization Address [facility] Co de Phone Number [facility] [address] [place] [address], * Thyroid stimulating hormone (09/07/2024 11:38 AM EDT) TSH 1.41 0.40 - 4.00 mcIU/mL LAB CHEMISTRY METHOD 09/07/2024 4:56 PM EDT [facility] Blood Venous blood specimen / Unknown Venipuncture / Unknown 09/07/2024 11:38 AM EDT 09/07/2024 1:06 PM EDT [facility] LAB BLOOD ORDERABLES Final Res ult Performing Organization Address [facility]/ZIP Co de Phone Number [facility] [address] [place] [address], * Thyroxine free (09/07/2024 11:38 AM EDT) Free T4 1.04 0.70 - 1.80 ng/dL LAB CHEMISTRY METHOD 09/07/2024 4:06 PM EDT [facility] Blood Venous blood specimen / Unknown Venipuncture / Unknown 09/07/2024 11:38 AM EDT 09/07/2024 1:06 PM EDT [facility] LAB BLOOD ORDERABLES Final Res ult Performing Organization Address [facility]/ZIP Co de Phone Number [facility] [address] [place] [address], * B-type natriuretic peptide (09/07/2024 11:38 AM EDT) BNP 59 <=100 pcg/mL LAB CHEMISTRY METHOD 09/07/2024 2:01 PM EDT [facility] Blood Venous blood specimen / Unknown Venipuncture / Unknown 09/07/2024 11:38 AM EDT 09/07/2024 1:07 PM EDT [facility] LAB BLOOD ORDERABLES Final Res ult Performing Organization Address [facility]/ZIP Co de Phone Number [facility] [address] [place] [address], * Magnesium (09/07/2024 11:38 AM EDT) Magnesium 1.9 1.9 - 2.6 mg/dL LAB CHEMISTRY METHOD 09/07/2024 2:18 PM EDT [facility] Blood Venous blood specimen / Unknown Venipuncture / Unknown 09/07/2024 11:38 AM EDT 09/07/2024 1:06 PM EDT [facility] LAB BLOOD ORDERABLES Final Res ult [facility] [address] [place] [address], [place] [phone] * Lipase (09/07/2024 11:38 AM EDT) Pathologist [facility] Lipase 60 13 - 75 unit/L LAB CHEMISTRY METHOD 09/07/2024 2:44 PM EDT [facility] Blood Venous blood specimen / Unknown Venipuncture / Unknown 09/07/2024 11:38 AM EDT 09/07/2024 1:06 PM EDT us Cesar FOWLER LAB BLOOD ORDERABLES Final Res ult Performing Organization Address City/[facility]/ZIP Co de Phone Number [facility] [address] [place] [address], [place] [phone] * Hemoglobin A1c (09/07/2024 11:38 AM EDT) [facility] Hemoglobin A1C 5.2 <6.5 % LAB CHEMISTRY METHOD 09/07/2024 9:22 PM EDT [facility] Mean Bld Glu Estim. 103 mg/dL LAB CHEMISTRY METHOD 09/07/2024 9:22 PM EDT [facility] Blood Venous blood specimen / Unknown Venipuncture / Unknown 09/07/2024 11:38 AM EDT 09/07/2024 1:07 PM EDT us Cesar FOWLER LAB BLOOD ORDERABLES Final Res ult Performing Organization Address [facility]/ZIP Co de Phone Number [facility] [address] [place] [address], [place] [phone] * (ABNORMAL) Folate (09/07/2024 11:38 AM EDT) [facility] Folate >20.0(H) 2.8 - 17.0 ng/ml LAB CHEMISTRY METHOD 09/07/2024 2:44 PM EDT [facility] Blood Venous blood specimen / Unknown Venipuncture / Unknown 09/07/2024 11:38 AM EDT 09/07/2024 1:06 PM EDT [facility] LAB BLOOD ORDERABLES Final Res ult Performing Organization Address City/[facility]/ZIP Co de Phone Number [facility] [address] [place] [address], [place] [phone] * Vitamin B12 (09/07/2024 11:38 AM EDT) Vitamin B-12 538 250 - 900 pcg/mL LAB CHEMISTRY METHOD 09/07/2024 2:44 PM EDT [facility] Blood Venous blood specimen / Unknown Venipuncture / Unknown 09/07/2024 11:38 AM EDT 09/07/2024 1:06 PM EDT [facility] LAB BLOOD ORDERABLES Final Res ult Performing Organization Address [facility] Co de Phone Number [facility] [address] [place] [address], [place] [phone] * Amylase (09/07/2024 11:38 AM EDT) Amylase 76 25 - 115 unit/L LAB CHEMISTRY METHOD 09/07/2024 2:18 PM EDT [facility] Blood Venous blood specimen / Unknown Venipuncture / Unknown 09/07/2024 11:38 AM EDT 09/07/2024 1:06 PM EDT [facility] LAB BLOOD ORDERABLES Final Res ult Performing Organization Address City/[facility]/ZIP Co de Phone Number [facility] [address] [place] [address], [place] [phone] * Comprehensive metabolic panel (09/07/2024 11:38 AM EDT) Sodium 140 133 - 145 mmol/L LAB CHEMISTRY METHOD 09/07/2024 2:44 PM EDT [facility] Potassium 4.3 3.5 - 5.5 mmol/L LAB CHEMISTRY METHOD 09/07/2024 2:44 PM [facility] Chloride 107 96 - 110 mmol/L LAB CHEMISTRY METHOD 09/07/2024 2:44 PM [facility] CO2 27 21 - 32 mmol/L LAB CHEMISTRY METHOD 09/07/2024 2:44 PM [facility] Anion Gap 6 3 - 11 LAB CHEMISTRY METHOD 09/07/2024 2:44 PM [facility] Glucose 78 70 - 100 mg/dL LAB CHEMISTRY METHOD 09/07/2024 2:44 PM [facility] BUN 22 5 - 25 mg/dL LAB CHEMISTRY METHOD 09/07/2024 2:44 PM [facility] Creatinine 1.14 0.70 - 1.30 mg/dL LAB CHEMISTRY METHOD 09/07/2024 2:44 PM [facility] eGFR 70 >=60 mL/min/1. 73m2 LAB CHEMISTRY METHOD 09/07/2024 2:44 PM [facility] Comment:Calculation based on the Chronic Kidney Disease Epidemiology Collaboration (CKD-EPI) equation refit without adjustment for race. BUN/Creatinine Ratio 19.3 LAB CHEMISTRY METHOD 09/07/2024 2:44 PM [facility] Calcium 9.0 8.5 - 10.5 mg/dL LAB CHEMISTRY METHOD 09/07/2024 2:44 PM [facility] AST (SGOT) 21 10 - 42 unit/L LAB CHEMISTRY METHOD 09/07/2024 2:44 PM [facility] ALT (SGPT) 29 10 - 60 unit/L LAB CHEMISTRY METHOD 09/07/2024 2:44 PM [facility] Alkaline Phosphatase 66 42 - 121 unit/L LAB CHEMISTRY METHOD 09/07/2024 2:44 PM [facility] Total Protein 6.7 6.0 - 8.0 g/dL LAB CHEMISTRY METHOD 09/07/2024 2:44 PM EDT [facility] Albumin 3.9 3.2 - 5.0 g/dL LAB CHEMISTRY METHOD 09/07/2024 2:44 PM EDT [facility] Total Bilirubin 1.0 0.0 - 1.4 mg/dL LAB CHEMISTRY METHOD 09/07/2024 2:44 PM EDT [facility] Blood Venous blood specimen / Unknown Venipuncture / Unknown 09/07/2024 11:38 AM EDT 09/07/2024 1:06 PM EDT [facility] LAB BLOOD ORDERABLES Final Res ult [facility] [address] [place] [address], from Last 3 Months Insurance MEDICARE [facility] [place] [id number] Care Teams Hydro Technician Relationship Specialty Start Date End Date Horacio Young MD [address] [place] [phone] PCP - General Internal Medicine 07/11/17
--- OUTSIDE RECORDS SUMMARY | 2024-11-25 08:58 | XMS_ITS | Patient Health Record ---
Author Organization [facility] [place] Address [address] [place] [address] Care Team Providers Care Terminal Gauger Supervisor Name Role Phone Cesar Tafoya Unavailable [phone] Migration, Provider Unavailable Unavailable Abril Mustafa Unavailable [phone] Brandy Herron Unavailable [phone] Allergies No Known Allergies Reason For Referral No Information Medications Medication SIG (Take, Route, Frequency, Duration) Notes Start Date End Date Status Albuterol Sulfate HFA 108 (90 Base) MCG/ACT Aerosol Solution 2 puffs as needed Inhalation every 4 hrs; Duration: 30 days Unknown Multi Vitamin Active amLODIPine Besylate 5 MG Tablet 1 tablet Orally Once a day Active Montelukast Sodium 10 MG Tablet 1 tablet Orally Once a day; Duration: 90 days 10/26/2024 Active Flovent HFA Not-Taki ng Betamethasone Active [...] tablet Orally O nce a day Active Social History Section Notes: DENIES SMOKING [...] Status Risk Notes Problem Iron deficiency anemia (11276592) Iron deficiency anemia, unspecified (D50.9) Active confirmed Problem Insomnia disorder related to another mental disorder (32367992) 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 Vital Signs Heart Rate 63 /min 11/08/2024 Temperature 97.1 degrees Fahrenheit 11/08/2024 Respiratory Rate 19 /min 11/08/2024 Oximetry 98 % 11/08/2024 Blood pressure diastolic 71 mm Hg 11/08/2024 Weight-kg 68.31 kg 11/08/2024 Blood pressure systolic 129 mm Hg 11/08/2024 Weight 150.6 lbs 11/08/2024 Encounters Encounter Location Date Provider Diagnosis [facility], [address] [address] 03/27/2024 Cesar Tafoya [facility], [address] [address] 03/27/2024 Provider Migration [facility], [address] [address] 06/21/2024 Cesar Tafoya [facility], [address] [address] 08/28/2024 Cesar Tafoya [facility], [address] [address] 09/07/2024 Abril Mustafa Insomnia due to other mental disorder F51.05 [facility], [address] [address] 11/08/2024 Abril Mustafa Follow-up exam Z09 and Iron deficiency anemia, unspecified D50.9 [facility], [address] [address] 10/19/2024 Brandy Herron [facility], [address] [address] 10/26/2024 Abril Mustafa Asthma, unspecified asthma severity, unspecified whether complicated, unspecified whether persistent J45.909 [facility], [address] [address] 10/05/2024 Abril Mustafa Assessments Encounter Date Diagnosis (ICD Code) Assessment Notes Treatment Notes Treatment Clinical Notes Section Notes 09/07/2024 Insomnia due to other mental disorder (ICD-10 - F51.05) 10/26/2024 Asthma, unspecified asthma severity, unspecified whether complicated, unspecified whether persistent (ICD-10 - J45.909) 11/08/2024 Iron deficiency anemia, unspecified (ICD-10 - D50.9) states he collapsed a year ago and was diagnosed with anemia. Now supplemening with vitamins. Will check H&H 11/08/2024 Follow-up exam (ICD-10 - Z09) states he collapsed a year ago and was diagnosed with anemia. Now supplemening with vitamins. Will check H&H 08/28/2024 CLONIPAN SEES A PROVIDER FOR THE MEDICATION REFILLS ALL OTHER MEDS 20+ YEARS DRINKING 50+ YEARS-RECOMMENDE D TO STOP DRINKING TOLD PT TO SEE CARDIOLOGY AND SCHEDULE APPT NEED EKG AT NEXT APPT LABS: LAB AIC CMP GFR TSH T4 LIPID VIT B12 URINE VIT D BNP PSA AMYLASE/LIPASE METROPAL 50MG IN HALF AND TAKE -KEEP BP LOG LOSARTAN 25MG IN AFTERNOON Plan Of Treatment Next Appt Details Provider Name:Abril Mustafa, 02/08/2025 01:00:00 PM, [address], [address], [place], [address], [phone] Insurance Providers Payer Name Payer Address Payer Phone Subscriber Number Group Number Insured Name Patient Relationship to Insured Coverage Start Date Coverage End Date [facility] [address] [address] [place] [address] [id number] AKOSUA MULLEN Self - patient is the insured Medical (General) History Medical History History ICD Code NO OTHER PROVIDERS Surgical History Surgery Date(Month/Year) ANGOPLASTY VICTRECTOMY GLAUCOMA HEART ATTACK 6 STENT shoulder surgery Hospitalization History Reason Date(Month/Year) FOR DEHYDRATION 10/21
== END 2024-11-25 08:53 | disposition home or self-care (01) ==
LOC: HO.MRI 08:52
PROVIDERS: Visit Provider Orthopaedic Surgery
DX: M25.312 Other instability, left shoulder (principal)
CPT/HCPCS: 73221

== ENCOUNTER 2024-12-20 13:22 | Outpatient (AMB) | payer OTHER, SELFPAY ==
--- OUTSIDE RECORDS SUMMARY | 2023-09-19 12:00 | XMS_ITS ---
Author Organization [facility], [place] Address [address] [facility] [address] [place] [address] Care Team Providers Care Pet Caretaker Name Role Phone Migration, Provider Unavailable Unavailable REASON FOR VISIT Follow-up Appt Encounters Encounter Location Date Provider Diagnosis [facility], [address] [place] [phone] 09/19/2023 Provider Migration Plan Of Treatment Next Appt Details Provider Name:Abril Mustafa, 02/08/2025 01:00:00 PM, [address] [place] [address], [address], [place], [address], [phone] Progress Notes * AKOSUA MULLENDOB:[birth year] (69 yo M)Acc No.[id number]:09/19/2023 Progress Notes Patient: AKOSUA AHNSON Provider: Nithya salcido Migration :1955 A ge:68 Y S ex:Male Date:09/19/2023 Phone: Address:[address] [phone] Subjective: * Chief Complaints: * F ollow-up Appt * Ocular Surgical History: Objective: Vision Examination: * Electronic signature of Prov ider Migration on 12/20/2024 at 04:53 PM EDT Sign off status: Pending * Provider: Nithya salcido Migration Date: 0 09/19/2023 Generated for Abdelrahman kong/Papa/eTsukumarsmitting on: 04:53 PM EDT
--- OUTSIDE RECORDS SUMMARY | 2023-10-04 12:00 | XMS_ITS ---
Author Organization [facility], [place] Address [address] [facility] [address] [place] [address] Care Team Providers Care Environmental Auditor Name Role Phone Migration, Provider Unavailable Unavailable REASON FOR VISIT Follow-up Appt Encounters Encounter Location Date Provider Diagnosis [facility], [address] [place] [address] 10/04/2023 Provider Migration Plan Of Treatment Next Appt Details Provider Name:Abril Mustafa, 02/08/2025 01:00:00 PM, [address] [place] [address], [address], [place], [address], [phone] Progress Notes * AKOSUA MULLENDOB:[birth year] (69 yo M)Acc No.[id number]:10/04/2023 Progress Notes Patient: AKOSUA HANSON Provider: Nithya salcido Migration :1955 A ge:68 Y S ex:Male Date:10/04/2023 Phone: Address:[address] [phone] Subjective: * Chief Complaints: * F ollow-up Appt * Ocular Surgical History: Objective: Vision Examination: * Electronic signature of Prov ider Migration on 12/20/2024 at 04:54 PM EDT Sign off status: Pending * Provider: Nithya salcido Migration Date: 0 10/04/2023 Generated for Abdelrahman kong/Papa/eTransmitting on: 1 04:54 PM EDT
--- OUTSIDE RECORDS SUMMARY | 2023-10-25 12:15 | XMS_ITS ---
Author Organization [facility], [place] Address [address] [facility] [address] [place] [address] Care Team Providers Care Archeologist Classical Name Role Phone Migration, Provider Unavailable Unavailable REASON FOR VISIT Follow-up Appt Encounters Encounter Location Date Provider Diagnosis [facility], [address] [place] [phone] 10/25/2023 Provider Migration Plan Of Treatment Next Appt Details Provider Name:Abril Mustafa, 02/08/2025 01:00:00 PM, [address] [place] [address], [address], [place], [address], [id number] Progress Notes * AKOSUA MULLENDOB:[birth year] (69 yo M)Acc No.[id number]:10/25/2023 Progress Notes Patient: AKOSUA HANSON Provider: Nithya salcido Migration :1955 A ge:68 Y S ex:Male Date:10/25/2023 Phone: Address:[address] [phone] Subjective: * Chief Complaints: * F ollow-up Appt * Ocular Surgical History: Objective: Vision Examination: * Electronic signature of Prov ider Migration on 12/20/2024 at 04:52 PM EDT Sign off status: Pending * Provider: Nithya salcido Migration Date: 0 10/25/2023 Generated for Abdelrahman kong/Papa/eTransmitting on: 1 04:52 PM EDT
--- OUTSIDE RECORDS SUMMARY | 2024-03-27 12:00 | XMS_ITS ---
Author Organization [facility], [place] Address [address] [facility] [address] [place] [address] Care Team Providers Care Grinder Outside Diameter Name Role Phone Migration, Provider Unavailable Unavailable REASON FOR VISIT Follow-up Appt Encounters Encounter Location Date Provider Diagnosis [facility], [address] [place] [phone] 03/27/2024 Provider Migration Plan Of Treatment Next Appt Details Provider Name:Abril Mustafa, 02/08/2025 01:00:00 PM, [address] [place] [address], [address], [place], [address], [phone] Progress Notes * AKOSUA MULLENDOB:[birth year] (69 yo M)Acc No.[id number]:03/27/2024 Progress Notes Patient: AKOSUA HANSON Provider: Nithya salcido Migration :1955 A ge:69 Y S ex:Male Date:03/27/2024 Phone: Address:[address] [phone] Subjective: * Chief Complaints: * F ollow-up Appt * Ocular Surgical History: Objective: Vision Examination: * Electronic signature of Prov ider Migration on 12/20/2024 at 04:52 PM EDT Sign off status: Pending * Provider: Nithya salcido Migration Date: 0 03/27/2024 Generated for Abdelrahman kong/Papa/eTransmitting on: 04:52 PM EDT
--- OUTSIDE RECORDS SUMMARY | 2024-03-27 12:00 | XMS_ITS ---
Author Organization [facility], [place] Address [address] [facility] [address] [place] [address] Care Team Providers Care Head Grower Name Role Phone Cesar Tafoya Unavailable [phone] REASON FOR VISIT Follow-up Appt Encounters Encounter Location Date Provider Diagnosis [facility] [place] [address] [facility] [address] [place] [phone] 03/27/2024 Cesar Tafoya Plan Of Treatment Next Appt Details Provider Name:Abril Mustafa, 02/08/2025 01:00:00 PM, [address] [facility], [address], [place], [address], [phone] Progress Notes * AKOSUA MULLENDOB:[birth year] (69 yo M)Acc No.[id number]:03/27/2024 Progress Notes Patient: AKOSUA HANSON Provider: Zandra FOWLER :1955 A ge:69 Y S ex:Male Date:03/27/2024 Phone: Address:[address], [facility] [phone] Subjective: * Chief Complaints: * F ollow-up Appt * Ocular Surgical History: Objective: Vision Examination: * Electronic signature of Flakito Tafoya PA-C on 12/20/2024 at 04:52 PM EDT Sign off status: Pending * Provider: Zandra FOWLER Date: 0 03/27/2024 Generated for Printi ng/Faxing/eTransmitting on: 1 04:52 PM EDT
--- OUTSIDE RECORDS SUMMARY | 2024-06-21 11:30 | XMS_ITS ---
Author Organization [facility] [place] Address [address] [facility] [address] [place] [address] Care Team Providers Care Group Director Experience Name Role Phone Cesar Tafoya Unavailable [phone] REASON FOR VISIT Follow-up Appt Encounters Encounter Location Date Provider Diagnosis [facility], [address] [place] [address] 06/21/2024 Cesar Tafoya Plan Of Treatment Next Appt Details Provider Name:Abril Mustafa, 02/08/2025 01:00:00 PM, [address] [facility], [address], [place], [address], [id number] Progress Notes * AKOSUA MULLENDOB:[birth year] (69 yo M)Acc No.[id number]:06/21/2024 Progress Notes Patient: AKOSUA HANSON Provider: Zandra FOWLER :1955 A ge:69 Y S ex:Male Date:06/21/2024 Phone: Address:[address], [facility] [phone] Subjective: * Chief Complaints: * F ollow-up Appt * Ocular Surgical History: Objective: Vision Examination: * Electronic signature of Flakito Tafoya PA-C on 12/20/2024 at 04:53 PM EDT Sign off status: Pending * Provider: Zandra FOWLER Date: 0 06/21/2024 Generated for Printi ng/Faxing/eTransmitting on: 1 04:53 PM EDT
--- OUTSIDE RECORDS SUMMARY | 2024-08-28 12:00 | XMS_ITS ---
Author Organization [facility] [place] Address [address] [facility] [address] [place] [address] Care Team Providers Care Geriatric Physician Name Role Phone Cesar Tafoya Unavailable [phone] Allergies No Known Allergies REASON FOR VISIT [...] 08/28/2024 Encounters Encounter Location Date Provider Diagnosis [facility] [place] [address] [facility] [address] [place] [address] 08/28/2024 Cesar Tafoya Assessments Encounter Date Diagnosis [...] BP Provider Name:Abril Barrosgerry, 02/08/2025 01:00:00 PM, [address] [place] [address], [address], [place], [address], [id number] Progress Notes * AKOSUA MULLENDOB:[birth year] (69 yo M)Acc No.[id number]:08/28/2024 Progress Notes Patient: AKOSUA HANSON Provider: Zandra FOWLER :1955 A ge:69 Y S ex:Male Date:08/28/2024 Phone: Address:[address] [place], [place] [address]lu Perez, [place], [place] Subjective: * Chief Complaints: * F [...] of Flakito Tafoya PA-C on 12/20/2024 at 04:54 PM EDT Sign off status: Pending * Provider: Zandra FOWLER Date: 0 08/28/2024 Generated for Abdelrahman kong/Papa/Logan on: 04:54 PM EDT
--- OUTSIDE RECORDS SUMMARY | 2024-09-07 06:45 | XMS_ITS ---
Author Organization [facility] [place] Address [address] [facility] [address] [place] [address] Care Team Providers Care Restaurant Bartender Name Role Phone Abril Mustafa Unavailable [phone] Allergies No Known Allergies REASON FOR VISIT [...] Insomnia disorder related to another mental disorder (52829005) Insomnia 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) [...] Location Date Provider Diagnosis [facility], [address] [place] [address] 09/07/2024 Abril Mustafa Insomnia due to other [...] Details Provider Name:Abril Mustafa, 02/08/2025 01:00:00 PM, [address] [place] [address], Suite [facility], [place], [address], [phone] Progress Notes * AKOSUA MULLENDOB:[birth year] (69 yo M)Acc No.[id number]:09/07/2024 Progress Notes Patient: AKOSUA HANSON Provider: Inna gibbs Ramsey :1955 A ge:69 Y S ex:Male Date:09/07/2024 Phone: Address:[facility] Fausto Perez, [place], [place] Subjective: * Chief Complaints: * 1 [...] * Electronic signature of Melissa Mustafa on 12/20/2024 at 04:53 PM EDT Sign off status: Pending * Provider: Inna Mustafa Date: 0 09/07/2024 Generated for Abdelrahman kong/Papa/Logan on: 1 04:53 PM EDT
--- OUTSIDE RECORDS SUMMARY | 2024-10-08 10:30 | XMS_ITS ---
Author Organization [facility] [place] Address [address] [place] [address] [address] [place] [address] Care Team Providers Care Sampler And Test Preparer Name Role Phone Abril Mustafa Unavailable [phone] REASON FOR VISIT 1 MOUTH Medications Medication [...] Unknown Encounters Encounter Location Date Provider Diagnosis [facility] [address] [facility] [address] [place] [address] 10/08/2024 Abril Mustafa Plan Of Treatment Next Appt Details Provider Name:Abril Mustafa, 02/08/2025 01:00:00 PM, [address] [facility], Suite [facility], [place], [address], [phone] Progress Notes * AKOSUA MULLENDOB:[birth year] (69 yo M)Acc No.[id number]:10/08/2024 Progress Notes Patient: AKOSUA HANSON Provider: Inna Mustafa :1955 A ge:69 Y S ex:Male Date:10/08/2024 Phone: Address:[address] [place], [place] [address]lu Perez, W [facility], [phone] Subjective: * Chief Complaints: * 1 MOUTH [...] a day * Electronic signature of Melissa Ramsey on 12/20/2024 at 04:53 PM EDT Sign off status: Pending * Provider: Inna Mustafa Date: 0 10/08/2024 Generated for Abdelrahman kong/Papa/Logan on: 1 04:53 PM EDT
--- OUTSIDE RECORDS SUMMARY | 2024-11-08 11:00 | XMS_ITS ---
Author Organization [facility] [place] Address [address] [place] [address] Care Team Providers Care Paper Stripper Name Role Phone Abril Mustafa Unavailable [phone] Allergies No Known Allergies REASON FOR VISIT [...] Status Risk Notes Problem Iron deficiency anemia (09297131) Iron deficiency anemia, unspecified (D50.9) Active confirmed Vital Signs Temperature 97.1 degrees Fahrenheit 11/09/19 25 Blood pressure systolic 129 mm Hg 11/09/19 25 Blood pressure diastolic 71 mm Hg 025 Heart Rate 63 /min 11/08/2024 Respiratory Rate 19 /min 11/08/2024 Weight 150.6 lbs 11/08/2024 Oximetry 98 % 11/08/2024 Weight-kg 68.31 kg 11/08/2024 Encounters Encounter Location Date Provider Diagnosis [facility] [place] [address] [place] [address] 11/08/2024 Abril Mustafa Follow-up exam Z09 and [...] Provider Name:Abril Mustafa, 02/08/2025 01:00:00 PM, [address], [address], [place], [address], [id number] History and Physical Notes * Examination Category [...] * AKOSUA MULLENDOB:[birth year] (69 yo M)Acc No.[id number]:11/08/2024 Progress Notes Patient: AKOSUA HANSON Provider: Inna Barrosgerry :1955 A ge:69 Y S ex:Male Date:11/08/2024 Phone: Address:[facility] [address], [place], [place] Subjective: * Chief Complaints: * F [...] Electronic signature of Melissa her Mustafa on 12/20/2024 at 04:53 PM EDT Sign off status: Pending * Provider: Inna Mustafa Date: 0 11/08/2024 Generated for Abdelrahman kong/Papa/Rosioitting on: 04:53 PM EDT
--- NOTE | 2024-12-20 13:36 | MHC.OFFVIS ---
Intake Visit Reasons: OV - Discuss Left TSA - Dr. Guevara Referral Intake Note: Bravo is a 69 year old right hand dominant male who presents today for a follow up of his right shoulder. Patient was last seen with Dr. Guevara who referred him to discuss a possible Left TSA. Allergies No Known Allergies Allergy (Verified 12/20/24 13:37) HPI HPI OV - Discuss Left TSA - Dr. Guevara Referral: Details: Bravo is a 69 year old right hand dominant male who presents today for a follow up of his right shoulder. Patient was last seen with Dr. Guevara who referred him to discuss a possible Left TSA. Bravo underwent left shoulder rotator cuff repair surgery approximately 15 years ago. He states he did well initially but over the past year so he has had a marked worsening of pain. He is an avid swimmer and has difficulty because of his pain and weakness. He has had multiple injections in the past. He got an injection in the last 6-9 months and states it was not helpful at all. He has also tried Tylenol and anti-inflammatory medicines which gave him minimal relief. He has tried physical therapy exercises which aggravated his pain. He reports weakness when lifting his left hand above shoulder height. 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 4-/5 empty can but his mechanics are altered and I can not actively or passively abduct him shoulder height. Neurovascularly intact left upper extremity Results Reviewed Results Reviewed: I personally reviewed relevant radiographs. I personally reviewed the MR images. IMPRESSION: XR 1. Curvilinear subchondral lucency in the humeral head which could represent a subchondral fracture. Additional views or cross-sectional imaging is suggested. 2. High riding humeral head consistent with rotator cuff disease. Impression: MRI 1. Chronic massive rotator cuff tear. 2. 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 3. Biceps tendinopathy. Assessment & Plan Assessment & Plan (1) Rotator cuff arthropathy of left shoulder: Code(s): M12.812 - Other specific arthropathies, not elsewhere classified, left shoulder Category: Medical Plan: 69-year-old gentleman with severe rotator cuff arthropathy left shoulder. He has failed conservative treatment and we discussed surgical options. He is a healthy gentleman who is a good candidate for arthroplasty. He has severe rotator cuff arthropathy with high-riding had an he would certainly benefit from a successful shoulder arthroplasty. I discussed the surgery with him. I discussed the risks, benefits and alternatives to surgery. I included the risks of infection, fracture, dislocation as well as the potential need for future surgery as well as medical complications related to surgery and general. In addition I express the likelihood that he will not have complete return to ?normal? normal motion. Typically terminal overhead combined glenohumeral abduction is restricted after reverse total shoulder in his setting. He understands that. His goal is to be able to get through his daily life without discomfort and swim. I did caution him that sometimes swimming can be difficult after shoulder replacement surgery. He understands this and we will begin the preoperative clearance process. Coding Level of Care Code Est Pt Level 4 (74026) Diagnoses Rotator cuff arthropathy of left shoulder M12.812
--- OUTSIDE RECORDS SUMMARY | 2024-12-20 16:53 | XMS_ITS | Clinical Summary ---
Author Organization [facility] Address [address] [place] [address] Care Team Providers Care Nurse Sitter Name Role Phone Horacio Young MD Primary Care Provider [phone] Allergies No known active allergies Medications Medication [...] age to complete this topic Care Teams Nurse Sitter Relationship Specialty Start Date End Date Horacio Young MD [address] [place], [place] [phone] PCP - General Internal Medicine 07/11/17
--- OUTSIDE RECORDS SUMMARY | 2024-12-20 16:53 | XMS_ITS | Clinical Summary ---
Author Organization [facility] Address [address] [place] [address] Care Team Providers Care Director Oracle Name Role Phone Horacio Young MD Primary Care Provider [phone] Allergies No known active allergies Medications VENTOLIN [...] - 2023-2 5 season) 2024 RSV Vaccine 50 years and old er and Patients (1 - 1-dose 75+ series) 2030 Hepatitis B Vaccines Aged Out No long er eligible based on patient's age to complete this topic Insurance [facility] Care Teams Director Oracle Relationship Specialty Start Date End Date Horacio Young MD [address] [place] [id number] PCP - General 11/10/16
--- OUTSIDE RECORDS SUMMARY | 2024-12-20 16:54 | XMS_ITS | Patient Health Record ---
Author Organization [facility] [place] Address [address] [place] [address] Care Team Providers Care Vegetable Specker Name Role Phone Cesar Tafoya Unavailable [phone] Migration, Provider Unavailable Unavailable Abril Mustafa Unavailable [phone] Brandy Herron Unavailable [phone] Allergies No Known Allergies Reason For Referral [...] Status Risk Notes Problem Iron deficiency anemia (20509254) Iron deficiency anemia, unspecified (D50.9) Active confirmed Problem Insomnia disorder related to another mental disorder (30121480) 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 Vital Signs Heart Rate 63 /min 11/08/2024 Temperature 97.1 degrees Fahrenheit 11/08/2024 Respiratory Rate 19 /min 11/08/2024 Oximetry 98 % 11/08/2024 Blood pressure diastolic 71 mm Hg 11/08/2024 Weight-kg 68.31 kg 11/08/2024 Blood pressure systolic 129 mm Hg 11/08/2024 Weight 150.6 lbs 11/08/2024 Encounters Encounter Location Date Provider Diagnosis [facility], [address] [address] 03/27/2024 Cesar Tafoya [facility], [address] [address] 03/27/2024 Provider Migration [facility], [address] [address] 06/21/2024 Cesar Tafoya [facility], [address] [address] 08/28/2024 Cesar Tafoya [facility], [address] [address] 09/07/2024 Abril Mustafa Insomnia due to other mental disorder F51.05 [facility], [address] [address] 11/08/2024 Abril Mustafa Follow-up exam Z09 and Iron deficiency anemia, unspecified D50.9 [facility], [address] [address] 10/19/2024 Brandy Herron [facility], [address] [address] 10/26/2024 Abril Mustafa Asthma, unspecified asthma severity, unspecified whether complicated, unspecified whether persistent J45.909 [facility], [address] [address] 10/05/2024 Abril Mustafa Assessments Encounter Date Diagnosis [...] Provider Name:Abril Mustafa, 02/08/2025 01:00:00 PM, [address], [address], [place], [address], [phone] Insurance Providers Payer Name Payer Address Payer Phone Subscriber Number Group Number Insured Name Patient Relationship to Insured Coverage Start Date Coverage End Date [facility] [address] [address] [place] [address] [id number] AKOSUA MULLEN Self - patient is the insured Medical (General) History Medical History History ICD Code NO OTHER PROVIDERS Surgical History Surgery Date(Month/Year) ANGOPLASTY VICTRECTOMY GLAUCOMA HEART ATTACK 6 STENT shoulder surgery Hospitalization History Reason Date(Month/Year) FOR DEHYDRATION 10/21
--- OUTSIDE RECORDS SUMMARY | 2024-12-20 16:54 | XMS_ITS | Clinical Summary ---
Author Organization [facility] [address] [place] [address] [place] [phone] Phone Care Team Providers Care Supervisor [employer] Name Role Phone Horacio Young MD Primary Care Provider [phone] Surgical History Surgery Date Site/Laterality Comments SHOULDER [...] Health Maintenance Due Date Last Done Comments Colorectal Cancer Screening: Colonoscopy 1955 DTaP,Tdap,and Td Vaccines (1 - Tdap) 1974 IPV Vaccines (2 of 3 - Adult catch-up series) 11/08/2005 10/11/2005 Hepatitis A Vaccines (2 of 2 - Risk 2-dose series) 04/13/2006 10/11/2005 Pneumococcal Vaccine: 50+ Years (2 of 2 - PCV) 01/05/2007 01/05/2006 Zoster Vaccines (2 of 3) 10/23/2016 08/28/2016 Abdominal Aortic Aneurysm (AAA) Screen 01/31/2022 Falls Risk Assessment 01/31/2022 Hepatitis C [...] Procedure Name Priority Date/Time Associated Diagnosis Comments COMPREHENSIVE METABOLIC PANEL Routine 09/07/2024 11:38 AM EDT Hypertension Alcohol abuse Benign enlargement of prostate LIPID PANEL WITH REFLEX TO DIRECT LDL Routine 09/07/2024 11:38 AM EDT Hypertension Alcohol abuse Benign enlargement of prostate from Last 3 Months or Most Recently Relevant to Health Maintenance Results * Lipid panel with reflex to direct LDL (09/07/2024 11:38 AM EDT) Cholesterol 122 0 - 200 mg/dL LAB CHEMISTRY METHOD 09/07/2024 2:44 PM EDT [facility] Triglycerides 68 0 - 150 mg/dL LAB CHEMISTRY METHOD 09/07/2024 2:44 PM EDT [facility] HDL 71 >=40 mg/dL LAB CHEMISTRY METHOD 09/07/2024 2:44 PM EDT [facility] LDL Calculated 37 0 - 100 mg/dL LAB CHEMISTRY METHOD 09/07/2024 2:44 PM EDT [facility] VLDL Cholesterol Neo 13.6 mg/dL LAB CHEMISTRY METHOD 09/07/2024 2:44 PM EDT [facility] Non HDL Chol. (LDL+VLDL) 51 <145 mg/dL LAB CHEMISTRY METHOD 09/07/2024 2:44 PM EDT [facility] Chol/HDL Ratio 1.7 0.0 - 4.4 LAB CHEMISTRY METHOD 09/07/2024 2:44 PM EDT [facility] Blood Venous blood specimen / Unknown Venipuncture / Unknown 09/07/2024 11:38 AM EDT 09/07/2024 1:06 PM EDT Cesar FOWLER LAB BLOOD ORDERABLES Final Res ult [facility] [address] [place] [address], [place] [phone] * Comprehensive metabolic panel (09/07/2024 11:38 AM EDT) Pathologist [facility] Sodium 140 133 - 145 mmol/L LAB CHEMISTRY METHOD 09/07/2024 2:44 PM EDT [facility] Potassium 4.3 3.5 - 5.5 mmol/L LAB CHEMISTRY METHOD 09/07/2024 2:44 PM EDT [facility] Chloride 107 96 - 110 mmol/L LAB CHEMISTRY METHOD 09/07/2024 2:44 PM [facility] CO2 27 21 - 32 mmol/L LAB CHEMISTRY METHOD 09/07/2024 2:44 PM [facility] Anion Gap 6 3 - 11 LAB CHEMISTRY METHOD 09/07/2024 2:44 PM [facility] Glucose 78 70 - 100 mg/dL LAB CHEMISTRY METHOD 09/07/2024 2:44 PM [facility] BUN 22 5 - 25 mg/dL LAB CHEMISTRY METHOD 09/07/2024 2:44 PM [facility] Creatinine 1.14 0.70 - 1.30 mg/dL LAB CHEMISTRY METHOD 09/07/2024 2:44 PM [facility] eGFR 70 >=60 mL/min/1. 73m2 LAB CHEMISTRY METHOD 09/07/2024 2:44 PM [facility] Comment:Calculation based on the Chronic Kidney Disease Epidemiology Collaboration (CKD-EPI) equation refit without adjustment for race. BUN/Creatinine Ratio 19.3 LAB CHEMISTRY METHOD 09/07/2024 2:44 PM [facility] Calcium 9.0 8.5 - 10.5 mg/dL LAB CHEMISTRY METHOD 09/07/2024 2:44 PM [facility] AST (SGOT) 21 10 - 42 unit/L LAB CHEMISTRY METHOD 09/07/2024 2:44 PM [facility] ALT (SGPT) 29 10 - 60 unit/L LAB CHEMISTRY METHOD 09/07/2024 2:44 PM [facility] Alkaline Phosphatase 66 42 - 121 unit/L LAB CHEMISTRY METHOD 09/07/2024 2:44 PM [facility] Total Protein 6.7 6.0 - 8.0 g/dL LAB CHEMISTRY METHOD 09/07/2024 2:44 PM [facility] Albumin 3.9 3.2 - 5.0 g/dL LAB CHEMISTRY METHOD 09/07/2024 2:44 PM EDT [facility] Total Bilirubin 1.0 0.0 - 1.4 mg/dL LAB CHEMISTRY METHOD 09/07/2024 2:44 PM EDT [facility] Blood Venous blood specimen / Unknown Venipuncture / Unknown 09/07/2024 11:38 AM EDT 09/07/2024 1:06 PM EDT us Cesar FOWLER LAB BLOOD ORDERABLES Final Res ult [facility] [address] [place] [address], from Last 3 Months or Most Recently Relevant to Health Maintenance Insurance MEDICARE [facility] [place] [id number] Care Teams Supervisor [employer] Relationship Specialty Start Date End Date Horacio Young MD [address] [address] PCP - General Internal Medicine 07/11/17
== END 2024-12-20 14:43 | disposition home or self-care (01) ==
LOC: HO.HOS 13:22
PROVIDERS: Visit Provider Orthopaedic Surgery
DX: M12.812 Other specific arthropathies, not elsewhere classified, left shoulder (principal)
CPT/HCPCS: 99214

== ENCOUNTER 2025-02-05 14:38 | Outpatient (AMB) | payer OTHER, SELFPAY ==
--- OUTSIDE RECORDS SUMMARY | 2023-09-19 11:00 | XMS_ITS ---
Author Organization [facility], [place] Address [address] [facility] [address] [place] [address] Care Team Providers Care Teachers Assistant Name Role Phone Migration, Provider Unavailable Unavailable REASON FOR VISIT Follow-up Appt Encounters Encounter Location Date Provider Diagnosis [facility], [address] [place] [address] 09/19/2023 Provider Migration Plan Of Treatment Next Appt Details Provider Name:Abril Mustafa, 02/08/2025 01:00:00 PM, [address] [place] [address], [address], [place], [address], [phone] Progress Notes * AKOSUA MULLENDOB:[birth year] (69 yo M)Acc No.[id number]:09/19/2023 Progress Notes Patient: AKOSUA HANSON Provider: Nithya salcido Migration :1955 A ge:68 Y S ex:Male Date:09/19/2023 Phone: Address:[address] [phone] Subjective: * Chief Complaints: * F ollow-up Appt * Ocular Surgical History: Objective: Vision Examination: * Electronic signature of Prov ider Migration on 02/05/2025 at 08:33 PM EST Sign off status: Pending * Provider: Nithya salcido Migration Date: 0 09/19/2023 Generated for Abdelrahman kong/Papa/Debbysmitting on: 1 04/08/2024 08:33 PM EST
--- OUTSIDE RECORDS SUMMARY | 2023-10-04 11:00 | XMS_ITS ---
Author Organization [facility], [place] Address [address] [facility] [address] [place] [address] Care Team Providers Care Inspector Paper Products Name Role Phone Migration, Provider Unavailable Unavailable REASON FOR VISIT Follow-up Appt Encounters Encounter Location Date Provider Diagnosis [facility], [address] [place] [phone] 10/04/2023 Provider Migration Plan Of Treatment Next Appt Details Provider Name:Abril Mustafa, 02/08/2025 01:00:00 PM, [address] [place] [address], [address], [place], [address], [phone] Progress Notes * AKOSUA MULLENDOB:[birth year] (69 yo M)Acc No.[id number]:10/04/2023 Progress Notes Patient: AKOSUA HANSON Provider: Nithya salcido Migration :1955 A ge:68 Y S ex:Male Date:10/04/2023 Phone: Address:[address] [phone] Subjective: * Chief Complaints: * F ollow-up Appt * Ocular Surgical History: Objective: Vision Examination: * Electronic signature of Prov ider Migration on 02/05/2025 at 08:34 PM EST Sign off status: Pending * Provider: Nithya salcido Migration Date: 0 10/04/2023 Generated for Abdelrahman kong/Papa/Debbysmitting on: 1 04/08/2024 08:34 PM EST
--- OUTSIDE RECORDS SUMMARY | 2023-10-25 11:15 | XMS_ITS ---
Author Organization [facility], [place] Address [address] [facility] [address] [place] [address] Care Team Providers Care Med Surg Rn Name Role Phone Migration, Provider Unavailable Unavailable REASON FOR VISIT Follow-up Appt Encounters Encounter Location Date Provider Diagnosis [facility], [address] [place] [address] 10/25/2023 Provider Migration Plan Of Treatment Next Appt Details Provider Name:Abril Mustafa, 02/08/2025 01:00:00 PM, [address] [place] [address], [address], [place], [address], [phone] Progress Notes * AKOSUA MULLENDOB:[birth year] (69 yo M)Acc No.[id number]:10/25/2023 Progress Notes Patient: AKOSUA HANSON Provider: Nithya salcido Migration :1955 A ge:68 Y S ex:Male Date:10/25/2023 Phone: Address:[address] [phone] Subjective: * Chief Complaints: * F ollow-up Appt * Ocular Surgical History: Objective: Vision Examination: * Electronic signature of Prov ider Migration on 02/05/2025 at 08:33 PM EST Sign off status: Pending * Provider: Nithya salcido Migration Date: 0 10/25/2023 Generated for Abdelrahman kong/Papa/Debbysmitting on: 1 04/08/2024 08:33 PM EST
--- OUTSIDE RECORDS SUMMARY | 2024-03-27 11:00 | XMS_ITS ---
Author Organization [facility], [place] Address [address] [facility] [address] [place] [address] Care Team Providers Care Solder Making Supervisor Name Role Phone Migration, Provider Unavailable Unavailable REASON FOR VISIT Follow-up Appt Encounters Encounter Location Date Provider Diagnosis [facility], [address] [place] [phone] 03/27/2024 Provider Migration Plan Of Treatment Next Appt Details Provider Name:Abril Mustafa, 02/08/2025 01:00:00 PM, [address] [place] [address], [address], [place], [address], [phone] Progress Notes * AKOSUA MULLENDOB:[birth year] (69 yo M)Acc No.[id number]:03/27/2024 Progress Notes Patient: AKOSUA HANSON Provider: Nithya salcido Migration :1955 A ge:69 Y S ex:Male Date:03/27/2024 Phone: Address:[address] [phone] Subjective: * Chief Complaints: * F ollow-up Appt * Ocular Surgical History: Objective: Vision Examination: * Electronic signature of Prov ider Migration on 02/05/2025 at 08:33 PM EST Sign off status: Pending * Provider: Nithya salcido Migration Date: 0 03/27/2024 Generated for Abdelrahman kong/Papa/Debbysmitting on: 04/08/2024 08:33 PM EST
--- OUTSIDE RECORDS SUMMARY | 2024-03-27 11:00 | XMS_ITS ---
Author Organization [facility], [place] Address [address] [facility] [address] [place] [address] Care Team Providers Care Allergy Nurse Name Role Phone Cesar Tafoya Unavailable [phone] REASON FOR VISIT Follow-up Appt Encounters Encounter Location Date Provider Diagnosis [facility] [place] [address] [facility] [address] [place] [phone] 03/27/2024 Cesar Tafoya Plan Of Treatment Next Appt Details Provider Name:Abril Mustafa, 02/08/2025 01:00:00 PM, [address] [facility], [address], [place], [address], [phone] Progress Notes * AKOSUA MULLENDOB:[birth year] (69 yo M)Acc No.[id number]:03/27/2024 Progress Notes Patient: AKOSUA HANSON Provider: Zandra FOWLER :1955 A ge:69 Y S ex:Male Date:03/27/2024 Phone: Address:[address], [facility] [phone] Subjective: * Chief Complaints: * F ollow-up Appt * Ocular Surgical History: Objective: Vision Examination: * Electronic signature of Flakito Tafoya PA-C on 02/05/2025 at 08:33 PM EST Sign off status: Pending * Provider: Zandra FOWLER Date: 0 03/27/2024 Generated for Printi ng/Faxing/eTransmitting on: 1 04/08/2024 08:33 PM EST
--- OUTSIDE RECORDS SUMMARY | 2024-06-21 10:30 | XMS_ITS ---
Author Organization [facility] [place] Address [address] [facility] [address] [place] [address] Care Team Providers Care Lab Analyst Name Role Phone Cesar Tafoya Unavailable [phone] REASON FOR VISIT Follow-up Appt Encounters Encounter Location Date Provider Diagnosis [facility], [address] [place] [address] 06/21/2024 Cesar Tafoya Plan Of Treatment Next Appt Details Provider Name:Abril Mustafa, 02/08/2025 01:00:00 PM, [address] [facility], [address], [place], [address], [phone] Progress Notes * AKOSUA MULLENDOB:[birth year] (69 yo M)Acc No.[id number]:06/21/2024 Progress Notes Patient: AKOSUA HANSON Provider: Zandra FOWLER :1955 A ge:69 Y S ex:Male Date:06/21/2024 Phone: Address:[address], [facility] [phone] Subjective: * Chief Complaints: * F ollow-up Appt * Ocular Surgical History: Objective: Vision Examination: * Electronic signature of Flakito Tafoya PA-C on 02/05/2025 at 08:34 PM EST Sign off status: Pending * Provider: Zandra FOWLER Date: 0 06/21/2024 Generated for Printi ng/Faxing/eTransmitting on: 1 04/08/2024 08:34 PM EST
--- OUTSIDE RECORDS SUMMARY | 2024-08-28 11:00 | XMS_ITS ---
Author Organization [facility] [place] Address [address] [facility] [address] [place] [address] Care Team Providers Care Milk Processing Worker Name Role Phone Cesar Tafoya Unavailable [phone] Allergies No Known Allergies REASON FOR VISIT Follow-up Appt Medications Medication SIG (Take, Route, Frequency, Duration) Notes Start Date End Date Status Betamethasone Active Atorvastatin Calcium 80 MG Tablet 1 tablet Orally Once a day Active amLODIPine Besylate 5 MG Tablet 1 tablet Orally Once a day Unknown Albuterol Sulfate HFA 108 (90 Base) MCG/ACT Aerosol Solution 1 puff as needed Inhalation every 4 hrs Active Losartan Potassium 25 MG Tablet 1 tablet Orally Once in the morning; Duration: 30 days 08/28/2024 Active Ezetimibe 10 MG Tablet 1 tablet Orally O nce a day Active Metoprolol Succinate ER 50 MG Tablet Extended Release 24 Hour 1 tablet Orally Once a day Active KlonoPIN 0.5 MG Tablet 1 tablet Orally O nce a day Active Flovent HFA Active Social History Section Notes: DENIES SMOKING ALCOHOL APPROX 5 TIMES A WEEK/1 DRINK DAILY CAFFEINE-1 CUP COFFEE DAILY Vital Signs Temperature 97.1 degrees Fahrenheit 08/29/19 25 Blood pressure systolic 99 mm Hg 08/29/19 25 Blood pressure diastolic 48 mm Hg 025 Heart Rate 50 /min 08/28/2024 Respiratory Rate 20 /min 08/28/2024 Weight 151 lbs 08/28/2024 Oximetry 95 % 08/28/2024 Weight-kg 68.49 kg 08/28/2024 Encounters Encounter Location Date Provider Diagnosis [facility] [place] [address] [facility] [address] [place] [address] 08/28/2024 Cesar Tafoya Assessments Encounter Date Diagnosis (ICD Code) Assessment Notes Treatment Notes Treatment Clinical Notes Section Notes 08/28/2024 FRANKIE SEES A PROVIDER FOR THE MEDICATION REFILLS ALL OTHER MEDS 20+ YEARS DRINKING 50+ YEARS-RECOMMEN DED TO STOP DRINKING TOLD PT TO SEE CARDIOLOGY AND SCHEDULE APPT NEED EKG AT NEXT APPT LABS: LAB AIC CMP GFR TSH T4 LIPID VIT B12 URINE VIT D BNP PSA AMYLASE/LIPASE METROPAL 50MG IN HALF AND TAKE -KEEP BP LOG LOSARTAN 25MG IN AFTERNOON Plan Of Treatment Medication Medication Name Sig Start Date Stop Date Notes Losartan Potassium 25 MG Tablet 1 tablet Orally Once in the morning; Duration: 30 days 08/28/2024 Next Appt Details Follow Up: 4 Months, Reason: BP Provider Name:Abril Barrosgerry, 02/08/2025 01:00:00 PM, [address] [place] [address], [address], [place], [address], [phone] Progress Notes * AKOSUA MULLENDOB:[birth year] (69 yo M)Acc No.[id number]:08/28/2024 Progress Notes Patient: AKOSUA HANSON Provider: Zandra FOWLER :1955 A ge:69 Y S ex:Male Date:08/28/2024 Phone: Address:[address] [place], [place] [address]lu Perez, [place], [place]-[address] Subjective: * Chief Complaints: * F ollow-up Appt * Medical History: NO OTHER PROVIDERS * Surgical History: ANGOPLASTY VICTRECTOMY GLAUCOMA HEART ATTACK 6 STENT Surgical History verified. * Ocular Surgical History: * Hospitalization/Major Diagno stic Procedure: FOR DEHYDRATION 10/21 Hospitalization Verified. * Family History: HEALTHY CARE PROXY ARMANDO MULLEN-. * Social History: Social History Verified. D ENIES SMOKING ALCOHOL APPROX 5 TIMES A WEEK/1 DRINK DAILY CAFFEINE-1 CUP COFFEE DAILY. * Medications: T akingMetoprolol Succinate ER 50 MG Tablet Extended Release 24 Hour 1 tablet Orally Once a day KlonoPIN 0.5 MG Tablet 1 tablet Orally Once a day Flovent HFA Ezetimibe 10 MG Tablet 1 tablet Orally Once a day Betamethasone Atorvastatin Calcium 80 MG Tablet 1 tablet Orally Once a day Albuterol Sulfate HFA 108 (90 Base) MCG/ACT Aerosol Solution 1 puff as needed Inhalation every 4 hrs Taking Metoprolol Succinate ER 50 MG Tablet Extended Release 24 Hour 1 tablet Orally Once a day Taking KlonoPIN 0.5 MG Tablet 1 tablet Orally Once a day Taking Flovent HFA Taking Ezetimibe 10 MG Tablet 1 tablet Orally Once a day Taking Betamethasone Taking Atorvastatin Calcium 80 MG Tablet 1 tablet Orally Once a day Taking Albuterol Sulfate HFA 108 (90 Base) MCG/ACT Aerosol Solution 1 puff as needed Inhalation every 4 hrs DiscontinuedLosartan Potassium-HCTZ 50-12.5 MG Tablet 1 tablet Orally Once a day Discontinued Losartan Potassium-HCTZ 50-12.5 MG Tablet 1 tablet Orally Once a day UnknownamLODIPine Besylate 5 MG Tablet 1 tablet Orally Once a day Medication List reviewed and reconciled with the patientUnknown amLODIPine Besylate 5 MG Tablet 1 tablet Orally Once a day Medication List reviewed and reconciled with the patient * Allergies: Vern .RyanAllergies Verified. Objective: * Vitals: B P:99/48mm Hg, HR:50/min, RR:20/min, Temp:97.1F, Oxygen sat %:95%, Wt:151lbs, Wt- k.49 kg. Vision Examination: Assessment: * Assessment: VIKYN SEES A PROVIDER FOR THE MEDICATION REFILLS ALL OTHER MEDS 20+ YEARS DRINKING 50+ YEARS-RECOMMENDED TO STOP DRINKING TOLD PT TO SEE CARDIOLOGY AND SCHEDULE APPT NEED EKG AT NEXT APPT LABS: LAB AIC CMP GFR TSH T4 LIPID VIT B12 URINE VIT D BNP PSA AMYLASE/LIPASE METROPAL 5 0MG IN HALF AND TAKE -KEEP BP LOG LOSARTAN 25MG IN AFTERNOON Plan: * Treatment: * Follow Up: 4 Months (Reason: BP) * Electronic signature of Flakito Tafoya PA-C on 02/05/2025 at 08:35 PM EST Sign off status: Pending * Provider: Zandra FOWLER Date: 0 08/28/2024 Generated for Abdelrahman kong/Papa/Logan on: 1 04/08/2024 08:35 PM EST
--- OUTSIDE RECORDS SUMMARY | 2024-09-07 05:45 | XMS_ITS ---
Author Organization [facility] [place] Address [address] [facility] [address] [place] [address] Care Team Providers Care Queen Producer Name Role Phone Abril Mustafa Unavailable [phone] Allergies No Known Allergies REASON FOR VISIT 1 month f/u, go over BP recorded at home Medications Medication SIG (Take, Route, Frequency, Duration) Notes Start Date End Date Status Atorvastatin Calcium 80 MG Tablet 1 tablet Orally Once a day Unknown Albuterol Sulfate HFA 108 (90 Base) MCG/ACT Aerosol Solution 2 puffs as needed Inhalation every 4 hrs; Duration: 30 days Active traZODone HCl 50 MG Tablet 1 tablet at b edtime as needed Orally Once a day; Duration: 30 days 09/07/2024 Active Losartan Potassium 25 MG Tablet 1 tablet Orally Once in the morning; Duration: 30 days 08/28/2024 Unknown amLODIPine Besylate 5 MG Tablet 1 tablet Orally Once a day Unknown Betamethasone Unknow n Metoprolol Succinate ER 50 MG Tablet Extended Release 24 Hour 1 tablet Orally Once a day Unknown KlonoPIN 0.5 MG Tablet 1 tablet Orally O nce a day Unknown Flovent HFA Unknown Ezetimibe 10 MG Tablet 1 tablet Orally O nce a day; Duration: 30 days Active Social History Section Notes: DENIES SMOKING ALCOHOL APPROX 5 TIMES A WEEK/1 DRINK DAILY CAFFEINE-1 CUP COFFEE DAILY Problems Problem Type SNOMED Code ICD Code Onset Dates Problem Status W/U Status Risk Notes Problem Insomnia disorder related to another mental disorder (31314670) 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 Vital Signs Temperature 96.3 degrees Fahrenheit 09/08/19 25 Blood pressure systolic 144 mm Hg 09/08/19 25 Blood pressure diastolic 81 mm Hg 025 Heart Rate 60 /min 09/07/2024 Respiratory Rate 20 /min 09/07/2024 Weight 151 lbs 09/07/2024 Oximetry 99 % 09/07/2024 Weight-kg 68.49 kg 09/07/2024 5.6 ht Encounters Encounter Location Date Provider Diagnosis [facility], [address] [place] [address] 09/07/2024 Abril Mustafa Insomnia due to other mental disorder F51.05 Assessments Encounter Date Diagnosis (ICD Code) Assessment Notes Treatment Notes Treatment Clinical Notes Section Notes 09/07/2024 Insomnia due to other mental disorder (ICD-10 - F51.05) Plan Of Treatment Medication Medication Name Sig Start Date Stop Date Notes Albuterol Sulfate HFA 108 (9 0 Base) MCG/ACT Aerosol Solution 2 puffs as needed Inhalation every 4 hrs; Duration: 30 days traZODone HCl 50 MG Tablet 1 tablet at b edtime as needed Orally Once a day; Duration: 30 days 09/07/2024 Ezetimibe 10 MG Tablet 1 tablet Orally O nce a day; Duration: 30 days Next Appt Details Provider Name:Abril Mustafa, 02/08/2025 01:00:00 PM, [address] [place] [address], Suite [facility], [place], [address], [phone] Progress Notes * AKOSUA MULLENDOB:[birth year] (69 yo M)Acc No.[id number]:09/07/2024 Progress Notes Patient: AKOSUA HANSON Provider: Inna gibbs Ramsey :1955 A ge:69 Y S ex:Male Date:09/07/2024 Phone: Address:[facility] Fausto Perez, [place], [place] Subjective: * Chief Complaints: * 1 month f/liz over BP recorded at home * Medical History: NO OTHER PROVIDERS Medical History Verified * Surgical History: ANGOPLASTY VICTRECTOMY GLAUCOMA HEART ATTACK 6 STENT Surgical History verified. * Hospitalization/Major Diagno stic Procedure: FOR DEHYDRATION 10/21 Hospitalization Verified. * Family History: HEALTHY CARE PROXY ARMANDO MULLEN-. * Social History: D ENIES SMOKING ALCOHOL APPROX 5 TIMES A WEEK/1 DRINK DAILY CAFFEINE-1 CUP COFFEE DAILY. * Medications: U nknownMetoprolol Succinate ER 50 MG Tablet Extended Release [...] puff as needed Inhalation every 4 hrs Losartan Potassium 25 MG Tablet 1 tablet Orally Once in the morning amLODIPine Besylate 5 MG Tablet 1 tablet Orally Once a day Unknown Metoprolol Succinate ER 50 MG Tablet Extended Release 24 Hour 1 tablet Orally Once a day Unknown KlonoPIN 0.5 MG Tablet 1 tablet Orally Once a day Unknown Flovent HFA Unknown Ezetimibe 10 MG Tablet 1 tablet Orally Once a day Unknown Betamethasone Unknown Atorvastatin Calcium 80 MG Tablet 1 tablet Orally Once a day Unknown Albuterol Sulfate HFA 108 (90 Base) MCG/ACT Aerosol Solution 1 puff as needed Inhalation every 4 hrs Unknown Losartan Potassium 25 MG Tablet 1 tablet Orally Once in the morning Unknown amLODIPine Besylate 5 MG Tablet 1 tablet Orally Once a day * Allergies: N .K.D.A.yesAllergies Verified. Objective: * Vitals: B P:144/81mm Hg, HR:60/min, RR:20/min, Temp:96.3F, Oxygen sat %:99%, Wt:151lbs, Wt-k.49 kg. 5.6 ht. Assessment: * Assessment: 1. I nsomnia due to other mental disorder - F51.05 Plan: * Treatment: 2. O thers Refill Albuterol Sulfate HFA Aerosol Solution, 108 (90 Base) MCG/ACT, 2 puffs as needed, Inhalation, every 4 hrs, 30 days, 1, Refills 3; R efill Ezetimibe Tablet, 10 MG, 1 tablet, Orally, Once a day, 30 days, 30 Tablet, Refills 3. * Electronic signature of Melissa Mustafa on 02/05/2025 at 08:33 PM EST Sign off status: Pending * Provider: Inna Mustafa Date: 0 09/07/2024 Generated for Abdelrahman kong/Papa/Logan on: 1 04/08/2024 08:33 PM EST
--- OUTSIDE RECORDS SUMMARY | 2024-10-08 09:30 | XMS_ITS ---
Author Organization [facility] [place] Address [address] [place] [address] [address] [place] [address] Care Team Providers Care Antenna Rigger Name Role Phone Abril Mustafa Unavailable [phone] REASON FOR VISIT 1 MOUTH Medications Medication SIG (Take, Route, Frequency, Duration) Notes Start Date End Date Status Albuterol Sulfate HFA 108 (90 Base) MCG/ACT Aerosol Solution 2 puffs as needed Inhalation every 4 hrs; Duration: 30 days Unknown traZODone HCl 50 MG Tablet 1 tablet at b edtime as needed Orally Once a day; Duration: 30 days 09/07/2024 Unknown Ezetimibe 10 MG Tablet 1 tablet Orally O nce a day; Duration: 30 days Unknown KlonoPIN 0.5 MG Tablet 1 tablet Orally O nce a day Unknown Metoprolol Succinate ER 50 MG Tablet Extended Release 24 Hour 1 tablet Orally Once a day Unknown Betamethasone Unknow n Flovent HFA Unknown Losartan Potassium 25 MG Tablet 1 tablet Orally Once in the morning; Duration: 30 days 08/28/2024 Unknown Atorvastatin Calcium 80 MG Tablet 1 tablet Orally Once a day Unknown amLODIPine Besylate 5 MG Tablet 1 tablet Orally Once a day Unknown Encounters Encounter Location Date Provider Diagnosis [facility] [address] [facility] [address] [place] [address] 10/08/2024 Abril Mustafa Plan Of Treatment Next Appt Details Provider Name:Abril Mustafa, 02/08/2025 01:00:00 PM, [address] [facility], Suite [facility], [place], [address], [phone] Progress Notes * AKOSUA MULLENDOB:[birth year] (69 yo M)Acc No.[id number]:10/08/2024 Progress Notes Patient: AKOSUA HANSON Provider: Inna Mustafa :1955 A ge:69 Y S ex:Male Date:10/08/2024 Phone: Address:[address] [place], [place] [address]lu Perez, W [facility], [phone] Subjective: * Chief Complaints: * 1 MOUTH * Medications: U nknownAlbuterol Sulfate HFA 108 (90 Base) MCG/ACT Aerosol Solution 2 puffs as needed Inhalation every 4 hrs Ezetimibe 10 MG Tablet 1 tablet Orally Once a day traZODone HCl 50 MG Tablet 1 tablet at bedtime as needed Orally Once a day Metoprolol Succinate ER 50 MG Tablet Extended Release 24 Hour 1 tablet Orally Once a day KlonoPIN 0.5 MG Tablet 1 tablet Orally Once a day Flovent HFA Betamethasone Atorvastatin Calcium 80 MG Tablet 1 tablet Orally Once a day Losartan Potassium 25 MG Tablet 1 tablet Orally Once in the morning amLODIPine Besylate 5 MG Tablet 1 tablet Orally Once a day Unknown Albuterol Sulfate HFA 108 (90 Base) MCG/ACT Aerosol Solution 2 puffs as needed Inhalation every 4 hrs Unknown Ezetimibe 10 MG Tablet 1 tablet Orally Once a day Unknown traZODone HCl 50 MG Tablet 1 tablet at bedtime as needed Orally Once a day Unknown Metoprolol Succinate ER 50 MG Tablet Extended Release 24 Hour 1 tablet Orally Once a day Unknown KlonoPIN 0.5 MG Tablet 1 tablet Orally Once a day Unknown Flovent HFA Unknown Betamethasone Unknown Atorvastatin Calcium 80 MG Tablet 1 tablet Orally Once a day Unknown Losartan Potassium 25 MG Tablet 1 tablet Orally Once in the morning Unknown amLODIPine Besylate 5 MG Tablet 1 tablet Orally Once a day * Electronic signature of Melissa Mustafa on 02/05/2025 at 08:34 PM EST Sign off status: Pending * Provider: Inna Mustafa Date: 0 10/08/2024 Generated for Abdelrahman kong/Papa/Logan on: 1 04/08/2024 08:34 PM EST
--- OUTSIDE RECORDS SUMMARY | 2024-11-08 10:00 | XMS_ITS ---
Author Organization [facility] [place] Address [address] [place] [address] Care Team Providers Care Air Pollution Control Engineer Name Role Phone Abril Mustafa Unavailable [phone] Allergies No Known Allergies REASON FOR VISIT FU, Patient indicates a cold and sore throat Medications Medication SIG (Take, Route, Frequency, Duration) Notes Start Date End Date Status amLODIPine Besylate 5 MG Tablet 1 tablet Orally Once a day Active Flovent HFA Not-Taki ng Betamethasone Active Atorvastatin Calcium 80 MG Tablet 1 tablet Orally Once a day Active Losartan Potassium 25 MG Tablet 1 tablet Orally Once in the morning; Duration: 30 days 08/28/2024 Active Albuterol Sulfate HFA 108 (90 Base) MCG/ACT Aerosol Solution 2 puffs as needed Inhalation every 4 hrs; Duration: 30 days Unknown Ezetimibe 10 MG Tablet 1 tablet Orally O nce a day; Duration: 30 days Active traZODone HCl 50 MG Tablet 1 tablet at b edtime as needed Orally Once a day; Duration: 30 days 09/07/2024 Active Metoprolol Succinate ER 50 MG Tablet Extended Release 24 Hour 1 tablet Orally Once a day Active KlonoPIN 0.5 MG Tablet 1 tablet Orally O nce a day Active Multi Vitamin Active Montelukast Sodium 10 MG Tablet 1 tablet Orally Once a day; Duration: 90 days 10/26/2024 Active Social History Section Notes: DENIES SMOKING ALCOHOL APPROX 5 TIMES A WEEK/1 DRINK DAILY CAFFEINE-1 CUP COFFEE DAILY Problems Problem Type SNOMED Code ICD Code Onset Dates Problem Status W/U Status Risk Notes Problem Iron deficiency anemia (39040068) Iron deficiency anemia, unspecified (D50.9) Active confirmed Vital Signs Temperature 97.1 degrees Fahrenheit 11/09/19 25 Blood pressure systolic 129 mm Hg 11/09/19 25 Blood pressure diastolic 71 mm Hg 025 Heart Rate 63 /min 11/08/2024 Respiratory Rate 19 /min 11/08/2024 Weight 150.6 lbs 11/08/2024 Oximetry 98 % 11/08/2024 Weight-kg 68.31 kg 11/08/2024 Encounters Encounter Location Date Provider Diagnosis [facility] [place] [address] [place] [address] 11/08/2024 Abril Mustafa Follow-up exam Z09 and Iron deficiency anemia, unspecified D50.9 Assessments Encounter Date Diagnosis (ICD Code) Assessment Notes Treatment Notes Treatment Clinical Notes Section Notes 11/08/2024 Follow-up exam (ICD-10 - Z09) states he collapsed a year ago and was diagnosed with anemia. Now supplemening with vitamins. Will check H&H 11/08/2024 Iron deficiency anemia, unspecified (ICD-10 - D50.9) states he collapsed a year ago and was diagnosed with anemia. Now supplemening with vitamins. Will check H&H Plan Of Treatment Next Appt Details Follow Up: 4 Weeks, Reason: labs Provider Name:Abril Mustafa, 02/08/2025 01:00:00 PM, [address], [address], [place], [address], [phone] History and Physical Notes * Examination Category Sub-Category Detail Notes Category Not es General Examination General appearance: alert, p leasant, well-nourished and in no acute distress, male Heart: regular rate and rhy thm without murmurs, gallops, clicks or rubs, S1 and S2 are normal and no S3 and S4 gallop Lungs: clear to auscultatio n bilaterally, with good air movement and no rales, rhonchi or wheezes Progress Notes * AKOSUA MULLENDOB:[birth year] (69 yo M)Acc No.[id number]:11/08/2024 Progress Notes Patient: AKOSUA HANSON Provider: Inna Barrosgerry :1955 A ge:69 Y S ex:Male Date:11/08/2024 Phone: Address:[facility] [address], [place], [place]-[address] Subjective: * Chief Complaints: * F UPatient indicates a cold and sore throat * Medical History: NO OTHER PROVIDERS * Surgical History: ANGOPLASTY VICTRECTOMY GLAUCOMA HEART ATTACK 6 STENT shoulder surgery * Hospitalization/Major Diagno stic Procedure: FOR DEHYDRATION 10/21 * Family History: F ather: . M other: , diagnosed with Heart disease. 1 son(s) , 1 daughter(s) - healthy. . HEALTHY CARE PROXY ARMANDO MULLEN- Dad- Cancer. * Social History: D ENIES SMOKING ALCOHOL APPROX 5 TIMES A WEEK/1 DRINK DAILY CAFFEINE-1 CUP COFFEE DAILY. * Medications: T akingMulti Vitamin Montelukast Sodium 10 MG Tablet 1 tablet Orally Once a day Ezetimibe 10 MG Tablet 1 tablet Orally [...] 1 tablet Orally Once a day Taking Multi Vitamin Taking Montelukast Sodium 10 MG Tablet 1 tablet Orally Once a day Taking Ezetimibe 10 MG Tablet 1 tablet Orally Once a day Taking traZODone HCl 50 MG Tablet 1 tablet at bedtime as needed Orally Once a day Taking Metoprolol Succinate ER 50 MG Tablet Extended Release 24 Hour 1 tablet Orally Once a day Taking KlonoPIN 0.5 MG Tablet 1 tablet Orally Once a day Taking Betamethasone Taking Atorvastatin Calcium 80 MG Tablet 1 tablet Orally Once a day Taking Losartan Potassium 25 MG Tablet 1 tablet Orally Once in the morning Taking amLODIPine Besylate 5 MG Tablet 1 tablet Orally Once a day Not-TakingFlovent HFA Not-Taking Flovent HFA UnknownAlbuterol Sulfate HFA 108 (90 Base) MCG/ACT Aerosol Solution 2 puffs as needed Inhalation every 4 hrs Unknown Albuterol Sulfate HFA 108 (90 Base) MCG/ACT Aerosol Solution 2 puffs as needed Inhalation every 4 hrs * Allergies: N .K.D.A.yesAllergies Verified. Objective: * Vitals: B P:129/71mm Hg, HR:63/min, RR:19/min, Temp:97.1F, Oxygen sat %:98%, Wt:150.6lbs, Wt-k.31 kg. * Examination: G eneral Examination: General appearance: a lert, pleasant, well-nourished and in no acute distress, male. Heart: r egular rate and rhythm without murmurs, gallops, clicks or rubs, S1 and S2 are normal and no S3 and S4 gallop. Lungs: c lear to auscultation bilaterally, with good air movement and no rales, rhonchi or wheezes. Assessment: * Assessment: 1. F ollow-up exam - Z09 (Primary) 2 . I silvia deficiency anemia, unspecified - D50.9 states he collapsed a year a go and was diagnosed with anemia. Now supplemening with vitamins. Will check H&H Plan: * Follow Up: 4 Weeks (Reason: labs) * Electronic signature of Melissa her Mustafa on 02/05/2025 at 08:34 PM EST Sign off status: Pending * Provider: Inna Mustafa Date: 0 11/08/2024 Generated for Abdelrahman kong/Papa/Rosioitting on: 1 04/08/2024 08:34 PM EST
--- NOTE | 2025-02-05 14:49 | MHC.OFFVIS ---
Intake Visit Reasons: Inj-right knee Durolane Intake Note: Bravo is a 69 year old male who presents with complaints of right knee pain. He describes his pain as sharp in nature. He has failed the last 3 months of conservative treatment. He wishes to hold off on surgery if at all possible. He has had Euflexxa injections in the past which gave him fairly good relief. He has not had a Durolane injection. 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 Physical Exam Extrem Other: Right knee examination shows a minimal effusion, palpable crepitus with range of motion, pain with range of motion, no instability Office Procedures AMB Joint Injection/Aspiration Joint Injection/Aspiration Primary Site: Right Knee Prep: site was prepped using aseptic technique Injected: 60 mg of, Durolane, with 3 mL of and 1% plain Lidocaine Procedure: The patient tolerated the procedure well Coding 25710 - Large joint Procedure code (CPT) selection complete Results Reviewed Results Reviewed: X-rays of the patient's right knee taken previously show joint space narrowing, subchondral sclerosis, no acute bony abnormalities Assessment & Plan Assessment & Plan (1) Osteoarthritis of right knee: Code(s): M17.11 - Unilateral primary osteoarthritis, right knee Category: Medical Plan Mr. Camara presents with right knee pain due to osteoarthritis. The risks and benefits of a right knee Durolane viscosupplementation injection were discussed at length with the patient. The patient wished to proceed. He tolerated the injection well. He will continue with his exercise program. He will contact me prior to his follow-up appointment in 3 months should any questions or concerns arise. Feel free to call me at any time should questions regarding his orthopedic management arise. I spent 22 minutes in reviewing the patient's records and imaging studies, seeing the patient and documenting in the medical record. Orders: Orders AMB Joint Injection/Aspiration 02/05/25 M17.11 - Unilateral primary osteoarthritis, right knee Coding Level of Care Code Est Pt Level 3 (43784) Complex visit Add On G2211 Diagnoses Osteoarthritis of right knee M17.11 CPT Codes Coding - 91876 Large joint: 41870 - Large joint ([id number])
--- OUTSIDE RECORDS SUMMARY | 2025-02-05 20:34 | XMS_ITS | Clinical Summary ---
Author Organization LL [address] [place] [address] [place] [phone] Phone Care Team Providers Care Machine Paint Mixer Name Role Phone Horacio Young MD Primary Care Provider [phone] Surgical History Surgery Date Site/Laterality Comments SHOULDER [...] LAB CHEMISTRY METHOD 09/07/2024 2:[address] [facility] Triglycerides 68 0 - 150 mg/dL LAB CHEMISTRY METHOD 09/07/2024 2:[address] [facility] HDL 71 >=40 mg/dL LAB CHEMISTRY METHOD 09/07/2024 2:[address] [facility] LDL Calculated 37 0 - 100 mg/dL LAB CHEMISTRY METHOD 09/07/2024 2:[address] [facility] VLDL Cholesterol Neo 13.6 mg/dL LAB CHEMISTRY METHOD 09/07/2024 2:[address] [facility] Non HDL Chol. (LDL+VLDL) 51 <145 mg/dL LAB CHEMISTRY METHOD 09/07/2024 2:[address] [facility] Chol/HDL Ratio 1.7 0.0 - 4.4 LAB CHEMISTRY METHOD 09/07/2024 2:[address] [facility] Blood Venous blood specimen / Unknown Venipuncture / Unknown 09/07/2024 11:38 AM EDT 09/07/2024 1:06 PM EDT us Cesar FOWLER LAB BLOOD ORDERABLES Final Res ult [facility] [address] [place] [address], [place] [phone] * Comprehensive metabolic panel (09/07/2024 11:38 AM EDT) Pathologist [facility] Sodium 140 133 - 145 mmol/L LAB CHEMISTRY METHOD 09/07/2024 2:[address] [facility] Potassium 4.3 3.5 - 5.5 mmol/L LAB CHEMISTRY METHOD 09/07/2024 2:[address] [facility] Chloride 107 96 - 110 mmol/L LAB CHEMISTRY METHOD 09/07/2024 2:44 PM [facility] CO2 27 21 - 32 mmol/L LAB CHEMISTRY METHOD 09/07/2024 2:44 PM [facility] Anion Gap 6 3 - 11 LAB CHEMISTRY METHOD 09/07/2024 2:44 PM [facility] Glucose 78 70 - 100 mg/dL LAB CHEMISTRY METHOD 09/07/2024 2:44 PM [facility] BUN 22 5 - 25 mg/dL LAB CHEMISTRY METHOD 09/07/2024 2:44 PM [facility] Creatinine 1.14 0.70 - 1.30 mg/dL LAB CHEMISTRY METHOD 09/07/2024 2:44 PM [facility] eGFR 70 >=60 mL/min/1. 73m2 LAB CHEMISTRY METHOD 09/07/2024 2:44 PM [facility] Comment:Calculation based on the Chronic Kidney Disease Epidemiology Collaboration (CKD-EPI) equation refit without adjustment for race. BUN/Creatinine Ratio 19.3 LAB CHEMISTRY METHOD 09/07/2024 2:44 PM [facility] Calcium 9.0 8.5 - 10.5 mg/dL LAB CHEMISTRY METHOD 09/07/2024 2:44 PM [facility] AST (SGOT) 21 10 - 42 unit/L LAB CHEMISTRY METHOD 09/07/2024 2:44 PM [facility] ALT (SGPT) 29 10 - 60 unit/L LAB CHEMISTRY METHOD 09/07/2024 2:44 PM [facility] Alkaline Phosphatase 66 42 - 121 unit/L LAB CHEMISTRY METHOD 09/07/2024 2:44 PM [facility] Total Protein 6.7 6.0 - 8.0 g/dL LAB CHEMISTRY METHOD 09/07/2024 2:44 PM [facility] Albumin 3.9 3.2 - 5.0 g/dL LAB CHEMISTRY METHOD 09/07/2024 2:44 PM EDT [facility] ([facility] Total Bilirubin 1.0 0.0 - 1.4 mg/dL LAB CHEMISTRY METHOD 09/07/2024 2:44 PM EDT [facility] ([facility] Blood Venous blood specimen / Unknown Venipuncture / Unknown 09/07/2024 11:38 AM EDT 09/07/2024 1:06 PM EDT us Cesar FOWLER LAB BLOOD ORDERABLES Final Res ult [facility] ([facility] [address] [place] [address], from Last 3 Months or Most Recently Relevant to Health Maintenance Insurance MEDICARE [facility] [place] [id number] Care Teams Machine Paint Mixer Relationship Specialty Start Date End Date Horacio Young MD [address] [id number] PCP - General Internal Medicine 07/11/17
--- OUTSIDE RECORDS SUMMARY | 2025-02-05 20:34 | XMS_ITS | Clinical Summary ---
Author Organization [facility] Prior to 07/28/24 Address [address] [place] [address] Care Team Providers Care Ditcher Operator Name Role Phone Horacio Young MD Primary [...] age to complete this topic Care Teams Ditcher Operator Relationship Specialty Start Date End Date Horacio Young MD [address] [place] [address] PCP - General Internal Medicine 07/11/17
--- OUTSIDE RECORDS SUMMARY | 2025-02-05 20:34 | XMS_ITS | Clinical Summary ---
Author Organization [facility] Address [address] [place] [address] Care Team Providers Care Manufacturing Business Analyst Name Role Phone Horacio Young MD Primary Care Provider [phone] Allergies No known active allergies Medications VENTOLIN [...] patient's age to complete this topic Insurance [facility] Care Teams Manufacturing Business Analyst Relationship Specialty Start Date End Date Horacio Young MD [address] [place] [id number] PCP - General 11/10/16
--- OUTSIDE RECORDS SUMMARY | 2025-02-05 20:35 | XMS_ITS | Patient Health Record ---
Author Organization [facility] [place] Address [address] [place] [address] Care Team Providers Care Application Coordinator Name Role Phone Cesar Tafoya Unavailable [phone] Migration, Provider Unavailable Unavailable Abril Mustafa Unavailable [phone] Brandy Herron Unavailable [phone] Allergies No Known Allergies Reason For Referral [...] Status Risk Notes Problem Iron deficiency anemia (70519987) Iron deficiency anemia, unspecified (D50.9) Active confirmed Problem Insomnia disorder related to another mental disorder (23957960) 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 Vital Signs Heart Rate 63 /min 11/08/2024 Temperature 97.1 degrees Fahrenheit 11/08/2024 Respiratory Rate 19 /min 11/08/2024 Oximetry 98 % 11/08/2024 Blood pressure diastolic 71 mm Hg 11/08/2024 Weight-kg 68.31 kg 11/08/2024 Blood pressure systolic 129 mm Hg 11/08/2024 Weight 150.6 lbs 11/08/2024 Encounters Encounter Location Date Provider Diagnosis [facility], [address] [address] 03/27/2024 Cesar Tafoya [facility], [address] [address] 03/27/2024 Provider Migration [facility] [place], [address] [address] 06/21/2024 Cesar Tafoya [facility], [address] [address] 08/28/2024 Cesar Tafoya [facility] [place], [address] [address] 09/07/2024 Abril Mustafa Insomnia due to other mental disorder F51.05 [facility] [place], [address] [address] 11/08/2024 Abril Mustafa Follow-up exam Z09 and Iron deficiency anemia, unspecified D50.9 [facility], [address] [address] 10/19/2024 Brandy Herron [facility], [address] [address] 10/26/2024 Abril Mustafa Asthma, unspecified asthma severity, unspecified whether complicated, unspecified whether persistent J45.909 [facility] [place], [address] [address] 10/05/2024 Abril Mustafa Assessments Encounter Date Diagnosis [...] Provider Name:Abril Mustafa, 02/08/2025 01:00:00 PM, [address] [facility], [address], [place], [address], [id number] Insurance Providers Payer Name Payer Address Payer Phone Subscriber Number Group Number Insured Name Patient Relationship to Insured Coverage Start Date Coverage End Date [facility] [address] [address] [place] [address] [id number] AKOSUA MULLEN Self - patient is the insured Medical (General) History Medical History History ICD Code NO OTHER PROVIDERS Surgical History Surgery Date(Month/Year) ANGOPLASTY VICTRECTOMY GLAUCOMA HEART ATTACK 6 STENT shoulder surgery Hospitalization History Reason Date(Month/Year) FOR DEHYDRATION 10/21
== END 2025-02-05 15:11 | disposition home or self-care (01) ==
LOC: HO.HOS 14:39
PROVIDERS: Visit Provider Orthopaedic Surgery
DX: M17.11 Unilateral primary osteoarthritis, right knee (principal)
CPT/HCPCS: 20610; 99213

== ENCOUNTER → 2025-02-05 14:38 | Outpatient (BNVA) | payer OTHER, SELFPAY | PROVIDERS: Visit Provider Orthopaedic Surgery | DX: M17.11 Unilateral primary osteoarthritis, right knee (principal) | CPT/HCPCS: 20610; J2003; J7318 ==